=== PATIENT | female | born 1945 | race Caucasian/White ===

== ENCOUNTER 2016-11-25 17:22 | Inpatient (IN) | payer MEDICARE, MEDICAID ==
[~2016-11-25] VITALS: Ht 160 cm; Wt 54.6 kg
[~2016-11-25 17:22] MED LIST: ASPI81TA3 PO; Amlodipine Besylate PO; CALC0.2511 PO; CARB1TAB3 PO; CARV3.1260 PO; CLON-379 PO; DOCU-144 PO; HYDR-3671 PO; HYDR-906 PO; LEVO500T72 PO; LOSA50TA2 PO; NOV SC; PANT40TA4 PO; PARO-37 PO; PRAM0.25 PO; QUET50TA16 PO; SEVE800T10 PO
[2016-11-25 20:16] VITALS: TEMP 97.3
[2016-11-25] MEDS ORDERED: OMEP20CA16 PO (20:37)
[2016-11-25] MEDS ORDERED: SEVE800T10 PO (20:37)
[2016-11-25] MEDS ORDERED: CLON2TAB3 PO (20:38)
[2016-11-25] MEDS ORDERED: QUET100T32 PO (20:38)
[2016-11-25] MEDS ORDERED: [UNRECOGNIZED DRUG - OTHER] PO (20:45)
[2016-11-25] MEDS ORDERED: NORFLEX PO (20:53)
[2016-11-25] MEDS ORDERED: NORFLEX (20:53)
[2016-11-25 21:03] LABS: ADD SCAN DIFF NO
[2016-11-25 21:06] LABS: BASOPHIL # 0.1 10^3/ul (0.0-0.1); BASOPHILS % 1.4 % (0.0-2.0); EOSINOPHILS # 0.6 10^3/ul (0.0-0.5); EOSINOPHILS % 10.1 % (0.0-7.0); HEMATOCRIT 37.5 % (37.0-47.0); HEMOGLOBIN 12.7 g/dl (12.0-16.0); LYMPHOCYTES # 1.6 10^3/ul (0.8-2.9); LYMPHOCYTES % 25.4 % (15.0-51.0); MEAN CORPUSCULAR HEMOGLOBIN 34.1 pg (29.0-33.0); MEAN CORPUSCULAR HGB CONC 33.9 g/dl (32.0-37.0); MEAN CORPUSCULAR VOLUME 100.8 fl (82.0-101.0); MEAN PLATELET VOLUME 11.3 fl (7.4-10.4); MONOCYTE # 0.6 10^3/ul (0.3-0.9); MONOCYTES % 9.5 % (0.0-11.0); NEUTROPHIL # 3.3 10^3/ul (1.6-7.5); NEUTROPHILS % 53.4 % (39.0-77.0); PLATELET COUNT 177 10^3/UL (140-415); RED BLOOD COUNT 3.72 10^6/ul (4.20-5.40); WHITE BLOOD COUNT 6.2 10^3/ul (4.8-10.8)
[2016-11-25 22:29] LABS: CREATININE 4.92 mg/dl (0.44-1.00)
[2016-11-25 22:30] LABS: CALCIUM 7.9 mg/dl (8.4-10.2)
[2016-11-25 22:31] LABS: POTASSIUM 6.1 mmol/L (3.5-5.1)
[2016-11-25] MEDS ORDERED: NA BICARBONATE 8.4% 50 ML SYG IV STA (22:31)
[2016-11-25] MEDS ORDERED: INSULIN REGULAR, HUMAN 100 UNIT/1 ML 3ML VIAL IV STA (22:31)
[2016-11-25] MEDS ORDERED: NA POLYST SULFON 15 GM/60 ML BTL PO STA (22:31)
[2016-11-25] MEDS ORDERED: DEXTROSE 50% 50 ML SYRINGE IV STA (22:31)
--- NOTE | 2016-11-25 22:42 | ERA ---
ER Documentation Chief Complaint Date/Time DATE: 11/25/16 TIME: 22:40 Chief Complaint CAME TO ED BECAUSE SHE "NEEDS DIALYSIS" HPI Patient is a 70-year-old female with diabetes and dialysis who presents for dialysis. The patient came back from [place] yesterday after being there for 5 months. She is not able to get dialysis here in the [place] this time. Therefore she came to the ER to get her dialysis. She was due for dialysis today. Upon review of old medical records this is the patient's fourth visit since August 2015 and she has been admitted 3 times previously. She has no complaints currently. ROS All systems reviewed and are negative except as per history of present illness. Medications Home Meds Active Scripts Pramipexole* (Pramipexole*) 0.25 Mg Tablet, 0.25 MG PO HS for 30 Days, TAB Prov:LISA LESTER MD 05/27/16 Reported Medications [Norflex 450/35MG] No Conflict Check, 1 TAB PO Q8H Y for PAIN 11/25/16 [Fosfocil] No Conflict Check, 500 MG PO QHS 11/25/16 Quetiapine Fumarate* (Quetiapine Fumarate*) 100 Mg Tablet, 100 MG PO BID, TAB 11/25/16 Clonazepam* (Clonazepam*) 2 Mg Tablet, 2 MG PO QHS, TAB 11/25/16 Sevelamer Hcl* (Renagel*) 800 Mg Tablet, 800 MG PO WITH MEAL DAILY, TAB 11/25/16 Omeprazole* (Omeprazole*) 20 Mg Capsule.dr, 40 MG PO QAM, #30 CAP 11/25/16 Carbidopa-Levodopa (Sinemet) 25-250 Mg Tablet, 0.5 TAB PO BID, TAB 09/03/15 Discontinued Reported Medications [Norflex] No Conflict Check 11/25/16 Insulin Aspart* (Novolog Insulin Vial*) 100 U/Ml Vial, 0 SC SLIDING SCALE AC, VIAL 09/23/15 Discontinued Scripts Sevelamer Hcl* (Renagel*) 800 Mg Tab, 1600 MG PO WITH MEALS for 30 Days, TAB Prov:LISA LESTER MD 05/27/16 Pantoprazole* (Pantoprazole*) 40 Mg Tabec, 40 MG PO DAILY for 30 Days Prov:LISA LESTER MD 05/27/16 Losartan Potassium* (Cozaar*) 50 Mg Tab, 100 MG PO DAILY for 30 Days, TAB Prov:LISA LESTER MD 05/27/16 Hydralazine Hcl* (Hydralazine Hcl*) 25 Mg Tab, 25 MG PO Q8 for 30 Days, TAB Prov:ILSA LESTER MD 05/27/16 [Amlodipine Besylate] 5 MG TAB No Conflict Check, 5 MG PO BID for 30 Days, TAB Prov:LISA LESTER MD 05/27/16 Quetiapine Fumarate* (Seroquel*) 50 Mg Tablet, 50 MG PO HS for 30 Days, TAB Prov:LISA LESTER MD 05/27/16 Carvedilol* (Carvedilol*) 3.125 Mg Tablet, 3.125 MG PO BID for 30 Days, TAB Prov:LISA LESTER MD 05/27/16 Paroxetine Hcl* (Paroxetine*) 20 Mg Tablet, 20 MG PO DAILY for 30 Days, TAB Prov:LISA LESTER MD 05/27/16 Calcitriol* (Calcitriol*) 0.25 Mcg Capsule, 0.25 MCG PO DAILY for 30 Days, CAP Prov:LISA LESTER MD 05/27/16 Aspirin* (Aspirin* Chew) 81 Mg Tab.chew, 81 MG PO DAILY, #30 TAB.CHEW Prov:LISA LESTER MD 05/27/16 Docusate Sodium* (Colace*) 100 Mg Capsule, 100 MG PO BID, #60 CAP Prov:SAMRA ODELL MD 05/22/16 Hydrocodone/Acetaminophen ([place] 5-325 Tablet) 1 Each Tablet, 1 EACH PO Q6 Y for PAIN LEVEL 6-10 for 7 Days, TAB Prov:SAMRA ODELL MD 05/22/16 Levofloxacin* (Levaquin*) 500 Mg Tablet, 500 MG PO Q48H for 10 Days, TAB Prov:SAMRA ODELL MD 05/22/16 Clonidine Hcl* (Clonidine Hcl*) 0.1 Mg Tab, 0.1 MG PO Q4H Y for sbp>160, #30 TAB Prov:ANGEL RAMIREZ 09/29/15 Allergies Allergies: Coded Allergies: No Known Allergy (Unverified , 11/25/16) PMhx/Soc History of Surgery: Yes (RT ANKLE SX, CHOLECYSTECTOMY, LT AV FISUTLA PLACEMENT) Anesthesia Reaction: No Hx Neurological Disorder: No Hx Respiratory Disorders: Yes (COPD) Hx Cardiac Disorders: Yes (HTN) Hx Psychiatric Problems: No Hx Miscellaneous Medical Probl: Yes (HTN, ESRD-DIALYSIS, DM, COPD, GERD) Hx Alcohol Use: No Hx Substance Use: No Hx Tobacco Use: Yes Smoking Status: Former smoker FmHx Family History: diabetes Physical Exam Vitals Vital Signs Date Time Temp Pulse Resp B/P Pulse Ox O2 Delivery O2 Flow Rate FiO2 11/25/16 20:16 97.3 52 18 151/67 97 Room Air 11/25/16 17:39 97.5 50 20 129/66 100 Physical Exam Const: No acute distress Head: Atraumatic Eyes: Normal Conjunctiva ENT: Normal External Ears, Nose and Mouth. Neck: Full range of motion..~ No meningismus. Resp: Clear to auscultation bilaterally Cardio: Regular rate and rhythm, no murmurs Abd: Soft, non tender, non distended. Normal bowel sounds Skin: No petechiae or rashes Back: No midline or flank tenderness Ext: No cyanosis, or edema Neur: Awake and alert Psych: Normal Mood and Affect Result Diagram: 11/25/16204911/25/162158 Results 24 hrs Laboratory Tests Test 11/25/16 20:50 11/25/16 21:59 Basophils # 0.110^3/ul Basophils % 1.4% Eosinophils # 0.610^3/ul Eosinophils % 10.1% Hematocrit 37.5% Hemoglobin 12.7g/dl Lymphocytes # 1.610^3/ul Lymphocytes % 25.4% Mean Corpuscular Hemoglobin 34.1pg Mean Corpuscular Hemoglobin Concent 33.9g/dl Mean Corpuscular Volume 100.8fl Mean Platelet Volume 11.3fl Monocytes # 0.610^3/ul Monocytes % 9.5% Neutrophils # 3.310^3/ul Neutrophils % 53.4% Nucleated Red Blood Cells # 0.010^3/ul Nucleated Red Blood Cells % 0.0/100WBC Platelet Count 42781^3/UL Red Blood Count 3.7210^6/ul Red Cell Distribution Width 14.0% White Blood Count 6.210^3/ul Anion Gap 24 Blood Urea Nitrogen 85mg/dl Calcium Level 7.9mg/dl Carbon Dioxide Level 20mmol/L Chloride Level 91mmol/L Creatinine 4.92mg/dl Glucose Level 143mg/dl Potassium Level 6.1mmol/L Sodium Level 129mmol/L Current Medications Medications (Trade) Dose Ordered Sig/Harmeet Route PRN Reason Start Time Stop Time Status Last Admin Dose Admin Insulin Human Regular (Humulin R) 10 unit ONCE STAT IV 11/25/16 22:31 11/25/16 22:32 DC Dextrose (D50w Syringe) 50 ml ONCE STAT IV 11/25/16 22:31 11/25/16 22:32 DC Sodium Polystyrene Sulfonate (Kayexalate) 30 gm ONCE STAT PO 11/25/16 22:31 11/25/16 22:32 DC Sodium Bicarbonate (Na Bicarb 8.4% Syg) 50 ml ONCE STAT IV 11/25/16 22:31 11/25/16 22:32 DC Ondansetron HCl (Zofran Inj) 4 mg ER BRIDGE PRN IV NAUSEA AND/OR VOMITING 11/25/16 23:00 11/26/16 22:59 Acetaminophen (Tylenol Tab) 650 mg ER BRIDGE PRN PO MILD PAIN/FEVER 11/25/16 23:00 11/26/16 22:59 Procedures/MDM EKG read by me: Rate/Rhythm: Regular rate and rhythm at a normal rate Intervals: Normal Impression: No evidence of ischemia or arrhythmia Patient is a 70-year-old female who presents with renal failure and hyperkalemia. She was given insulin, glucose, bicarbonate, and Kayexalate. She will need dialysis. I spoke with Dr. Lester from the panel team for admission to a telemetry bed. Without admission, treatment for potassium, and dialysis the patient is a high risk of ventricular arrhythmias. Critical Care: Time: 35 minutes excluding all billable procedures. Treatments/Evaluations: Close monitoring and treatment of unstable vital signs, cardiorespiratory, and neurologic status, while maintaining tight balance of fluid, respiratory, and cardiac interventions. Departure Diagnosis: Primary Impression: Hyperkalemia Condition: CAROL Dunbar MD Nov 25, 2016 22:42
[2016-11-25] MEDS ORDERED: ONDANSETRON 4 MG INJ IV PRN (23:00)
[2016-11-25] MEDS ORDERED: ACETAMINOPHEN 325 MG TAB PO PRN (23:00)
[2016-11-26] VITALS (20 sets, daily range): BP systolic 112–197; BP diastolic 52–86; PULSE 40–87; RESP 16–20; Ht 160 cm; Wt 54.6 kg
[2016-11-26] MEDS ORDERED: ONDANSETRON 4 MG INJ IV PRN (01:00)
[2016-11-26] MEDS: ACCUCHECK XX SCH (01:09)
[2016-11-26] MEDS ORDERED: GLUCOSE GEL 15 GRAM TUBE PO PRN ×2 (01:30)
[2016-11-26] MEDS ORDERED: GLUCAGON 1 MG INJ IM PRN (01:30)
[2016-11-26] MEDS ORDERED: DEXTROSE 50% 50 ML SYRINGE IV PRN ×2 (01:30)
[2016-11-26] MEDS: clonAZEPAM 0.5 MG TAB PO SCH ×2 (01:41→20:27)
[2016-11-26] MEDS: CARBIDOPA/LEVODOPA (25/250) TAB PO SCH ×3 (01:41→20:13)
[2016-11-26] MEDS: QUETIAPINE 100 MG TAB PO SCH ×3 (01:41→20:14)
[2016-11-26 06:13] LABS: ADD SCAN DIFF NO
[2016-11-26 06:28] LABS: BASOPHIL # 0.1 10^3/ul (0.0-0.1); EOSINOPHILS # 0.3 10^3/ul (0.0-0.5); EOSINOPHILS % 3.9 % (0.0-7.0); HEMATOCRIT 36.1 % (37.0-47.0); HEMOGLOBIN 11.8 g/dl (12.0-16.0); LYMPHOCYTES % 13.4 % (15.0-51.0); MEAN CORPUSCULAR HGB CONC 32.7 g/dl (32.0-37.0); MEAN CORPUSCULAR VOLUME 100.8 fl (82.0-101.0); MEAN PLATELET VOLUME 9.8 fl (7.4-10.4); MONOCYTE # 0.6 10^3/ul (0.3-0.9); MONOCYTES % 8.3 % (0.0-11.0); NEUTROPHIL # 5.2 10^3/ul (1.6-7.5); NEUTROPHILS % 73.1 % (39.0-77.0); PLATELET COUNT 146 10^3/UL (140-415); RED BLOOD COUNT 3.58 10^6/ul (4.20-5.40); RED CELL DISTRIBUTION WIDTH 13.8 % (11.5-14.5); WHITE BLOOD COUNT 7.1 10^3/ul (4.8-10.8)
[2016-11-26 06:35] LABS: ALBUMIN 3.6 g/dl (3.3-4.9)
[2016-11-26 06:36] LABS: POTASSIUM 5.6 mmol/L (3.5-5.1)
[2016-11-26 06:38] LABS: ALBUMIN/GLOBULIN RATIO 0.94; CREATININE 4.98 mg/dl (0.44-1.00); TOTAL PROTEIN 7.4 g/dl (6.1-8.1)
[2016-11-26 06:39] LABS: CALCIUM 7.2 mg/dl (8.4-10.2); MAGNESIUM 2.3 mg/dl (1.7-2.5)
[2016-11-26] MEDS: INSULIN ASPART [NOVOLOG] 3 ML PEN SC SCH ×4 (07:55→20:13)
[2016-11-26] MEDS ORDERED: INSULIN GLARGINE [LANtus] 3 ML PEN SC SCH (08:00)
[2016-11-26] MEDS: SEVELAMER 800 MG TAB PO SCH ×3 (08:14→18:09)
[2016-11-26] MEDS: SODIUM CHLORIDE 1 GM TAB PO SCH ×3 (08:14→20:12)
[2016-11-26] MEDS: FAMOTIDINE 20 MG TAB PO SCH (08:15)
[2016-11-26] MEDS: HEPARIN 5,000 UNIT/0.5 ML SYG SC SCH ×2 (08:25→20:33)
--- NOTE | 2016-11-26 11:13 | HP ---
Date/Time of Note Date/Time of Note DATE: 11/26/16 TIME: 11:00 Assessment/Plan Lines/Catheters IV C[facility]ter Type (from [facility]): Saline Lock Urinary Cath still in place: No Assessment/Plan Assessment/Plan IMPRESSION 1. ESRD on HD 2. Hyperkalemia 3. Mild Metabolic Acidosis 4. Probable Parkinson's disease. 5. Depression. 6. Diabetes mellitus. 7. Chronic obstructive pulmonary disease. 8. Secondary Hemochromatosis (per previous MRI) 9. Hypertension 10 Anemia of Chronic Disease PLAN - pt is s/p kayexalate and insulin in ER. Will f/u repeat labs - Will place a Nephrology consult - Cont home meds with adjustment as needed HPI/ROS Admit Date/Time Admit Date/Time Nov 25, 2016 at 22:35 Hx of Present Illness This is a 70 yo female with hx of End-stage renal disease on hemodialysis, Hypertension, DM, COPD, Rest Leg syndrome, probable Parkinso/s Disease, Depression, GERD and secondary Hemochromatosis(per MRI 2015), and anemia of chronic kidney disease who presented to [facility] after missing dialysis. She just returned from [place] after 5 months vacation. She was last admitted her in April of 2016 after missing dialysis because of vacation. Labs in ER showed k+ 6.1, BUN 85, Cr 4.9, HCO3 20 and Na 129. She was given kayexalate, bicarb and insulin while in ER. PMH/Family/Social Past Surgical History Past Surgical Hx: cholecystectomy Social History Smoking Status: Former smoker Exam/Review of Systems Vital Signs Vitals Vital Signs Date Time Temp Pulse Resp B/P Pulse Ox O2 Delivery O2 Flow Rate FiO2 11/26/16 08:08 49 11/26/16 07:38 97.4 20 140/67 98 11/26/16 04:02 Room Air Labs Result Diagram: 11/26/16 0540 11/26/16 0540 Medications Medications Current Medications Carbidopa/Levodopa (Sinemet (25/ 250)) 0.5 tab BID PO Last administered on 08:16; Admin Dose 0.5 TAB; Start 11/26/16 at 01:33 Clonazepam (Klonopin) 2 mg QHS PO Last administered on 11/26/16 01:41; Admin Dose 2 MG; Start 11/26/16 at 01:33 Pramipexole (Mirapex) 0.25 mg HS PO ; Start 11/26/16 at 21:00 Quetiapine Fumarate (Seroquel) 100 mg BID PO Last administered on 11/26/16 08: 15; Admin Dose 100 MG; Start 11/26/16 at 01:33 Famotidine (Pepcid) 20 mg DAILY PO Last administered on 11/26/16 08:15; Admin Dose 20 MG; Start 11/26/16 at 09:00 Heparin Sodium (Porcine) (Heparin (5000 Units/0.5 ml)) 5,000 unit BID SC Last administered on 11/26/16 08:25; Admin Dose 5,000 UNIT; Start 11/26/16 at 09:00 Ondansetron HCl (Zofran Inj) 4 mg Q4H PRN IV NAUSEA AND/OR VOMITING; Start 11/26 at 01:00 Acetaminophen (Tylenol Tab) 650 mg Q6H PRN PO PAIN AND OR ELEVATED TEMP; Start 11/26/16 at 01:00 Hydralazine HCl (Apresoline) 10 mg BID PO Last administered on 11/26/16 08:15; Admin Dose 10 MG; Start 11/26/16 at 01:33 Hydralazine HCl (Apresoline) 10 mg Q4H PRN IV ELEVATED BLOOD PRESSURE; Start at 01:00 Insulin Glargine (Lantus) 10 unit DAILY@08 SC Last administered on 11/26/16 08: 25; Admin Dose 10 UNIT; Start 11/26/16 at 08:00 Diagnostic Test (Pha) (Accucheck) 1 ea 02 XX ; Start 11/26/16 at 02:00 Miscellaneous Information 1 ea NOTE XX ; Start 11/26/16 at 01:30 Glucose (Glutose) 15 gm Q15M PRN PO DECREASED GLUCOSE; Start 11/26/16 at 01:30 Glucose (Glutose) 22.5 gm Q15M PRN PO DECREASED GLUCOSE; Start 11/26/16 at 01:30 Dextrose (D50w Syringe) 25 ml Q15M PRN IV DECREASED GLUCOSE; Start 11/26/16 at 01:30 Dextrose (D50w Syringe) 50 ml Q15M PRN IV DECREASED GLUCOSE; Start 11/26/16 at 01:30 Glucagon (Glucagen) 1 mg Q15M PRN IM DECREASED GLUCOSE; Start 11/26/16 at 01:30 Glucose (Glutose) 15 gm Q15M PRN BUCCAL DECREASED GLUCOSE; Start 11/26/16 at 01: 30 Sodium Chloride (Nacl) 1 gm TID PO Last administered on 11/26/16 08:14; Admin Dose 1 GM; Start 11/26/16 at 09:00; Stop 11/27/16 at 09:00 LISA LESTER MD Nov 26, 2016 11:13
[2016-11-26 13:12] LABS: HAAIG REFLEX REFLEX FILED
--- NOTE | 2016-11-26 13:24 | CONS ---
DATE OF ADMISSION: 11/25/2016 DATE OF CONSULTATION: 11/26/2016 HISTORY OF PRESENT ILLNESS: The patient is a 70-year-old woman with history of end-stage renal disease, has been on hemodialysis for approximately 4 years. The patient has been in [place] for the past approximately 3 months. Prior to that, she was dialyzed in [place]. She returned from [place] 2 days ago. Apparently she tried to return to the hemodialysis center, but they referred her to the emergency room. In the emergency room, the patient was found to be mildly hyperkalemic with a potassium of 6.1. She was treated with Kayexalate and admitted. The patient states that her last dialysis was 3 days ago. Otherwise, the patient complains of some mild intermittent right-sided abdominal pain. She has had some occasional vomiting, but none recently. There has been no fever or chills. She denies any shortness of breath or chest pain. PAST MEDICAL HISTORY: 1. End-stage renal disease. 2. Hypertension. 3. Possible Parkinson's disease. 4. Diabetes mellitus. 5. Chronic obstructive pulmonary disease. 6. Anemia due to chronic kidney disease. PAST SURGICAL HISTORY: 1. Left upper arm AV fistula creation. 2. Cholecystectomy. SOCIAL HISTORY: The patient smokes 2 to 3 cigarettes per day. She does not use alcohol. FAMILY HISTORY: Both parents are . She has 2 sons with diabetes. REVIEW OF SYSTEMS: A 12-system review of systems was negative other than what is mentioned in the HPI. Medications Current Medications Carbidopa/Levodopa (Sinemet (25/ 250)) 0.5 tab BID PO Last administered on 08:16; Admin Dose 0.5 TAB; Start 11/26/16 at 01:33 Clonazepam (Klonopin) 2 mg QHS PO Last administered on 11/26/16 01:41; Admin Dose 2 MG; Start 11/26/16 at 01:33 Pramipexole (Mirapex) 0.25 mg HS PO ; Start 11/26/16 at 21:00 Quetiapine Fumarate (Seroquel) 100 mg BID PO Last administered on 11/26/16 08: 15; Admin Dose 100 MG; Start 11/26/16 at 01:33 Famotidine (Pepcid) 20 mg DAILY PO Last administered on 11/26/16 08:15; Admin Dose 20 MG; Start 11/26/16 at 09:00 Heparin Sodium (Porcine) (Heparin (5000 Units/0.5 ml)) 5,000 unit BID SC Last administered on 11/26/16 08:25; Admin Dose 5,000 UNIT; Start 11/26/16 at 09:00 Ondansetron HCl (Zofran Inj) 4 mg Q4H PRN IV NAUSEA AND/OR VOMITING; Start 11/26 at 01:00 Acetaminophen (Tylenol Tab) 650 mg Q6H PRN PO PAIN AND OR ELEVATED TEMP; Start 11/26/16 at 01:00 Hydralazine HCl (Apresoline) 10 mg BID PO Last administered on 11/26/16 08:15; Admin Dose 10 MG; Start 11/26/16 at 01:33 Hydralazine HCl (Apresoline) 10 mg Q4H PRN IV ELEVATED BLOOD PRESSURE; Start at 01:00 Insulin Glargine (Lantus) 10 unit DAILY@08 SC Last administered on 11/26/16 08: 25; Admin Dose 10 UNIT; Start 11/26/16 at 08:00 Diagnostic Test (Pha) (Accucheck) 1 ea 02 XX ; Start 11/26/16 at 02:00 Miscellaneous Information 1 ea NOTE XX ; Start 11/26/16 at 01:30 Glucose (Glutose) 15 gm Q15M PRN PO DECREASED GLUCOSE; Start 11/26/16 at 01:30 Glucose (Glutose) 22.5 gm Q15M PRN PO DECREASED GLUCOSE; Start 11/26/16 at 01:30 Dextrose (D50w Syringe) 25 ml Q15M PRN IV DECREASED GLUCOSE; Start 11/26/16 at 01:30 Dextrose (D50w Syringe) 50 ml Q15M PRN IV DECREASED GLUCOSE; Start 11/26/16 at 01:30 Glucagon (Glucagen) 1 mg Q15M PRN IM DECREASED GLUCOSE; Start 11/26/16 at 01:30 Glucose (Glutose) 15 gm Q15M PRN BUCCAL DECREASED GLUCOSE; Start 11/26/16 at 01: 30 Sodium Chloride (Nacl) 1 gm TID P PHYSICAL EXAMINATION: VITAL SIGNS: Blood pressure is 139/65, heart rate is 53, temperature is 98.0. GENERAL APPEARANCE: Patient appears to be an elderly female in no acute distress. SKIN: Dry. There is no rash. HEENT: Mouth revealed normal moist mucosa. NECK: Supple. Jugular veins were distended in the supine position. CHEST: Lungs clear to auscultation. HEART: Regular rhythm. Normal 1, normal S2. There was no murmur, gallop or rub. ABDOMEN: Soft and nontender. EXTREMITIES: There is no peripheral edema. There is aneurysmal AV fistula in the left upper arm with a good bruit. LABORATORY DATA: Sodium is 133, potassium is 5.6, chloride is 93, CO2 is 22, BUN is 88, creatinine is 4.98. Random blood sugar 78, phosphorus 6.0, calcium is 7.2, hemoglobin is 11.8, hematocrit is 36.1. White blood cell count of 7100 , platelet count is 146,000. IMPRESSION: 1. End-stage renal disease on intermittent hemodialysis. Last dialysis was 3 days ago. 2. Hyperkalemia, mild. 3. Hypertension, controlled. 4. Diabetes mellitus, controlled. PLAN: 1. Hemodialysis will be done today. 2. Monitor labs. 3. Arrangements for outpatient hemodialysis will be made. Dictated By: STERLING CERDA/MAEGAN Conf#: [id number] DID#: [id number] MTDD
[2016-11-26 14:11] LABS: HEPATITIS B CORE ANTIBODY NEGATIVE (NEGATIVE)
[2016-11-26] MEDS: hydrALAzine 20 MG INJ IV PRN (20:15)
[2016-11-26] MEDS: PRAMIPEXOLE 0.25 MG TAB PO SCH (21:00)
[2016-11-27] VITALS (12 sets, daily range): BP systolic 122–169; BP diastolic 56–79; PULSE 61–71; RESP 16–18
[2016-11-27] MEDS: ACCUCHECK XX SCH (02:00)
[2016-11-27] MEDS: ACETAMINOPHEN 325 MG TAB PO PRN (03:11)
[2016-11-27 06:02] LABS: ADD SCAN DIFF NO
[2016-11-27 06:21] LABS: BASOPHIL # 0.1 10^3/ul (0.0-0.1); BASOPHILS % 1.3 % (0.0-2.0); EOSINOPHILS # 0.6 10^3/ul (0.0-0.5); EOSINOPHILS % 11.4 % (0.0-7.0); HEMOGLOBIN 12.8 g/dl (12.0-16.0); LYMPHOCYTES # 1.8 10^3/ul (0.8-2.9); LYMPHOCYTES % 32.2 % (15.0-51.0); MEAN CORPUSCULAR HGB CONC 32.8 g/dl (32.0-37.0); MEAN CORPUSCULAR VOLUME 100.5 fl (82.0-101.0); MONOCYTE # 0.6 10^3/ul (0.3-0.9); MONOCYTES % 10.9 % (0.0-11.0); NEUTROPHIL # 2.4 10^3/ul (1.6-7.5); PLATELET COUNT 138 10^3/UL (140-415); RED BLOOD COUNT 3.88 10^6/ul (4.20-5.40); RED CELL DISTRIBUTION WIDTH 14.1 % (11.5-14.5); WHITE BLOOD COUNT 5.4 10^3/ul (4.8-10.8)
[2016-11-27 06:50] LABS: ALBUMIN 3.4 g/dl (3.3-4.9)
[2016-11-27 06:51] LABS: POTASSIUM 4.6 mmol/L (3.5-5.1)
[2016-11-27 06:53] LABS: ALBUMIN/GLOBULIN RATIO 0.94; BILIRUBIN,INDIRECT 0.1 mg/dl (0-1.1); BILIRUBIN,TOTAL 0.1 mg/dl (0.2-1.3); CREATININE 4.03 mg/dl (0.44-1.00)
[2016-11-27 06:54] LABS: CALCIUM 8.1 mg/dl (8.4-10.2)
[2016-11-27] MEDS: GLUCOSE GEL 15 GRAM TUBE BUCCAL PRN ×2 (07:02→16:58)
[2016-11-27] MEDS: INSULIN ASPART [NOVOLOG] 3 ML PEN SC SCH ×4 (07:55→22:33)
[2016-11-27] MEDS: QUETIAPINE 100 MG TAB PO SCH ×2 (08:51→20:54)
[2016-11-27] MEDS: SEVELAMER 800 MG TAB PO SCH ×3 (08:51→16:48)
[2016-11-27] MEDS: FAMOTIDINE 20 MG TAB PO SCH (08:51)
[2016-11-27] MEDS: SODIUM CHLORIDE 1 GM TAB PO SCH (08:52)
[2016-11-27] MEDS: CARBIDOPA/LEVODOPA (25/250) TAB PO SCH ×2 (08:52→20:53)
[2016-11-27] MEDS: HEPARIN 5,000 UNIT/0.5 ML SYG SC SCH ×2 (08:55→20:56)
--- NOTE | 2016-11-27 12:46 | CONS ---
Date/Time of Note Date/Time of Note DATE: 11/27/16 TIME: 12:44 Assessment/Plan Assessment/Plan Additional Assessment/Plan 1. End-stage renal disease on intermittent hemodialysis. Tolerated dialysis yesterday. Plan for HD again tomorrow am. She can then be discharged when outpatient dialysis is arranged. 2. Hyperkalemia, resolved 3. Hypertension, controlled. 4. Diabetes mellitus, controlled. BS was low this am. Consultation Date/Type/Reason Admit Date/Time Nov 25, 2016 at 22:35 Initial Consult Date Type of Consultation: Nephrology 24 HR Interval Summary Free Text/Dictation Alert, up in chair, no complaints. Exam/Review of Systems Vital Signs Vitals Vital Signs Date Time Temp Pulse Resp B/P Pulse Ox O2 Delivery O2 Flow Rate FiO2 11/27/16 12:22 61 11/27/16 11:55 97.4 18 138/65 95 11/26/16 04:02 Room Air Intake and Output 11/26/16 11/26/16 11/27/16 15:00 23:00 07:00 Intake Total 1400 ml 300 ml Output Total 1800 ml 0 ml Balance -400 ml 300 ml Exam Constitutional: alert Psych: no complaints Neck: No jvd Respiratory: clear to auscultation Cardiovascular: regular rate and rhythm Gastrointestinal: non-tender, soft Extremities: No edema Results Result Diagram: 11/27/16 0539 11/27/16 0539 Results 24 hrs Laboratory Tests Test 11/26/16 18:04 11/26/16 20:11 11/27/16 05:39 11/27/16 06:58 Bedside Glucose 91 116 48 *L Alanine Aminotransferase (ALT/SGPT) 14 Albumin 3.4 Albumin/Globulin Ratio 0.94 Alkaline Phosphatase 276 H Anion Gap 20 H Aspartate Amino Transf (AST/SGOT) 37 Basophils # 0.1 Basophils % 1.3 Blood Urea Nitrogen 65 H Calcium Level 8.1 L Carbon Dioxide Level 26 Chloride Level 96 L Creatinine 4.03 H Direct Bilirubin 0.00 Eosinophils # 0.6 H Eosinophils % 11.4 H Globulin 3.60 H Glucose Level 47 #*L Hematocrit 39.0 Hemoglobin 12.8 Indirect Bilirubin 0.1 Lymphocytes # 1.8 Lymphocytes % 32.2 Mean Corpuscular Hemoglobin 33.0 Mean Corpuscular Hemoglobin Concent 32.8 Mean Corpuscular Volume 100.5 Mean Platelet Volume 10.0 Monocytes # 0.6 Monocytes % 10.9 Neutrophils # 2.4 Neutrophils % 44.0 Nucleated Red Blood Cells # 0.0 Nucleated Red Blood Cells % 0.0 Platelet Count 138 L Potassium Level 4.6 Red Blood Count 3.88 L Red Cell Distribution Width 14.1 Sodium Level 137 Total Bilirubin 0.1 L Total Protein 7.0 White Blood Count 5.4 # Test 11/27/16 07:11 11/27/16 08:04 11/27/16 11:53 11/27/16 12:28 Bedside Glucose 72 109 89 107 Medications Medications Current Medications Carbidopa/Levodopa (Sinemet (25/ 250)) 0.5 tab BID PO Last administered on 08:52; Admin Dose 0.5 TAB; Start 11/26/16 at 01:33 Clonazepam (Klonopin) 2 mg QHS PO Last administered on 11/26/16 20:27; Admin Dose 2 MG; Start 11/26/16 at 01:33 Pramipexole (Mirapex) 0.25 mg HS PO ; Start 11/26/16 at 21:00 Quetiapine Fumarate (Seroquel) 100 mg BID PO Last administered on 11/27/16 08: 51; Admin Dose 100 MG; Start 11/26/16 at 01:33 Famotidine (Pepcid) 20 mg DAILY PO Last administered on 11/27/16 08:51; Admin Dose 20 MG; Start 11/26/16 at 09:00 Heparin Sodium (Porcine) (Heparin (5000 Units/0.5 ml)) 5,000 unit BID SC Last administered on 11/27/16 08:55; Admin Dose 5,000 UNIT; Start 11/26/16 at 09:00 Ondansetron HCl (Zofran Inj) 4 mg Q4H PRN IV NAUSEA AND/OR VOMITING; Start 11/26 at 01:00 Acetaminophen (Tylenol Tab) 650 mg Q6H PRN PO PAIN AND OR ELEVATED TEMP Last administered on 11/27/16 03:11; Admin Dose 650 MG; Start 11/26/16 at 01:00 Hydralazine HCl (Apresoline) 10 mg BID PO Last administered on 11/27/16 08:52; Admin Dose 10 MG; Start 11/26/16 at 01:33 Hydralazine HCl (Apresoline) 10 mg Q4H PRN IV ELEVATED BLOOD PRESSURE Last administered on 11/26/16 20:15; Admin Dose 10 MG; Start 11/26/16 at 01:00 Diagnostic Test (Pha) (Accucheck) 1 ea 02 XX ; Start 11/26/16 at 02:00 Miscellaneous Information 1 ea NOTE XX ; Start 11/26/16 at 01:30 Glucose (Glutose) 15 gm Q15M PRN PO DECREASED GLUCOSE; Start 11/26/16 at 01:30 Glucose (Glutose) 22.5 gm Q15M PRN PO DECREASED GLUCOSE; Start 11/26/16 at 01:30 Dextrose (D50w Syringe) 25 ml Q15M PRN IV DECREASED GLUCOSE; Start 11/26/16 at 01:30 Dextrose (D50w Syringe) 50 ml Q15M PRN IV DECREASED GLUCOSE; Start 11/26/16 at 01:30 Glucagon (Glucagen) 1 mg Q15M PRN IM DECREASED GLUCOSE; Start 11/26/16 at 01:30 Glucose (Glutose) 15 gm Q15M PRN BUCCAL DECREASED GLUCOSE Last administered on 11/27/16 07:02; Admin Dose 15 GM; Start 11/26/16 at 01:30 STERLING MENDEZ MD Nov 27, 2016 12:46
--- NOTE | 2016-11-27 13:12 | PN ---
Date/Time of Note Date/Time of Note DATE: 11/27/16 TIME: 13:07 Assessment/Plan VTE Prophylaxis VTE Prophylaxis Intervention: heparin Lines/Catheters IV C[facility]ter Type (from [facility]): Saline Lock Urinary Cath still in place: No Assessment/Plan Chief Complaint/Hosp Course 1. ESRD on HD -Renal consult appreciated, cont HD -will need out-pt HD 2. Hyperkalemia 2/2 ESRD-resolved 3. Parkinson's -cont Rx 4. Diabetes mellitus -A1C at 6.2 -DC Lantus 2/2 Hypoglycemia 5. Chronic obstructive pulmonary disease-stable PPx- Heparin Problems: Subjective 24 Hr Interval Summary Constitutional: no complaints Exam/Review of Systems Vital Signs Vitals Vital Signs Date Time Temp Pulse Resp B/P Pulse Ox O2 Delivery O2 Flow Rate FiO2 11/27/16 12:22 61 11/27/16 11:55 97.4 18 138/65 95 11/26/16 04:02 Room Air Intake and Output 11/26/16 11/26/16 11/27/16 15:00 23:00 07:00 Intake Total 1400 ml 300 ml Output Total 1800 ml 0 ml Balance -400 ml 300 ml Exam Constitutional: alert Respiratory: clear to auscultation Cardiovascular: regular rate and rhythm Gastrointestinal: soft, No distended Musculoskeletal: nl extremities to inspection Results Result Diagram: 11/27/16 0539 11/27/16 0539 Results 24 hrs Laboratory Tests Test 11/26/16 18:04 11/26/16 20:11 11/27/16 05:39 11/27/16 06:58 Bedside Glucose 91 116 48 *L Alanine Aminotransferase (ALT/SGPT) 14 Albumin 3.4 Albumin/Globulin Ratio 0.94 Alkaline Phosphatase 276 H Anion Gap 20 H Aspartate Amino Transf (AST/SGOT) 37 Basophils # 0.1 Basophils % 1.3 Blood Urea Nitrogen 65 H Calcium Level 8.1 L Carbon Dioxide Level 26 Chloride Level 96 L Creatinine 4.03 H Direct Bilirubin 0.00 Eosinophils # 0.6 H Eosinophils % 11.4 H Globulin 3.60 H Glucose Level 47 #*L Hematocrit 39.0 Hemoglobin 12.8 Indirect Bilirubin 0.1 Lymphocytes # 1.8 Lymphocytes % 32.2 Mean Corpuscular Hemoglobin 33.0 Mean Corpuscular Hemoglobin Concent 32.8 Mean Corpuscular Volume 100.5 Mean Platelet Volume 10.0 Monocytes # 0.6 Monocytes % 10.9 Neutrophils # 2.4 Neutrophils % 44.0 Nucleated Red Blood Cells # 0.0 Nucleated Red Blood Cells % 0.0 Platelet Count 138 L Potassium Level 4.6 Red Blood Count 3.88 L Red Cell Distribution Width 14.1 Sodium Level 137 Total Bilirubin 0.1 L Total Protein 7.0 White Blood Count 5.4 # Test 11/27/16 07:11 11/27/16 08:04 11/27/16 11:53 11/27/16 12:28 Bedside Glucose 72 109 89 107 Medications Medications Current Medications Carbidopa/Levodopa (Sinemet (25/ 250)) 0.5 tab BID PO Last administered on 08:52; Admin Dose 0.5 TAB; Start 11/26/16 at 01:33 Clonazepam (Klonopin) 2 mg QHS PO Last administered on 11/26/16 20:27; Admin Dose 2 MG; Start 11/26/16 at 01:33 Pramipexole (Mirapex) 0.25 mg HS PO ; Start 11/26/16 at 21:00 Quetiapine Fumarate (Seroquel) 100 mg BID PO Last administered on 11/27/16 08: 51; Admin Dose 100 MG; Start 11/26/16 at 01:33 Famotidine (Pepcid) 20 mg DAILY PO Last administered on 11/27/16 08:51; Admin Dose 20 MG; Start 11/26/16 at 09:00 Heparin Sodium (Porcine) (Heparin (5000 Units/0.5 ml)) 5,000 unit BID SC Last administered on 11/27/16 08:55; Admin Dose 5,000 UNIT; Start 11/26/16 at 09:00 Ondansetron HCl (Zofran Inj) 4 mg Q4H PRN IV NAUSEA AND/OR VOMITING; Start 11/26 at 01:00 Acetaminophen (Tylenol Tab) 650 mg Q6H PRN PO PAIN AND OR ELEVATED TEMP Last administered on 11/27/16 03:11; Admin Dose 650 MG; Start 11/26/16 at 01:00 Hydralazine HCl (Apresoline) 10 mg BID PO Last administered on 11/27/16 08:52; Admin Dose 10 MG; Start 11/26/16 at 01:33 Hydralazine HCl (Apresoline) 10 mg Q4H PRN IV ELEVATED BLOOD PRESSURE Last administered on 11/26/16 20:15; Admin Dose 10 MG; Start 11/26/16 at 01:00 Diagnostic Test (Pha) (Accucheck) 1 ea 02 XX ; Start 11/26/16 at 02:00 Miscellaneous Information 1 ea NOTE XX ; Start 11/26/16 at 01:30 Glucose (Glutose) 15 gm Q15M PRN PO DECREASED GLUCOSE; Start 11/26/16 at 01:30 Glucose (Glutose) 22.5 gm Q15M PRN PO DECREASED GLUCOSE; Start 11/26/16 at 01:30 Dextrose (D50w Syringe) 25 ml Q15M PRN IV DECREASED GLUCOSE; Start 11/26/16 at 01:30 Dextrose (D50w Syringe) 50 ml Q15M PRN IV DECREASED GLUCOSE; Start 11/26/16 at 01:30 Glucagon (Glucagen) 1 mg Q15M PRN IM DECREASED GLUCOSE; Start 11/26/16 at 01:30 Glucose (Glutose) 15 gm Q15M PRN BUCCAL DECREASED GLUCOSE Last administered on 11/27/16 07:02; Admin Dose 15 GM; Start 11/26/16 at 01:30 DARREN VERGARA Nov 27, 2016 13:12
[2016-11-27] MEDS: hydrALAzine 20 MG INJ IV PRN (16:48)
[2016-11-27] MEDS: clonAZEPAM 0.5 MG TAB PO SCH (20:54)
[2016-11-27] MEDS: PRAMIPEXOLE 0.25 MG TAB PO SCH (20:55)
[2016-11-28] VITALS (17 sets, daily range): BP systolic 121–162; BP diastolic 54–74; PULSE 59–76; RESP 16–18
[2016-11-28] MEDS: ACCUCHECK XX SCH (02:25)
[2016-11-28] MEDS ORDERED: HYDROCODONE/APAP (5/325) TAB PO PRN (02:30)
[2016-11-28 07:29] LABS: POTASSIUM 4.7 mmol/L (3.5-5.1)
[2016-11-28 07:32] LABS: CREATININE 4.64 mg/dl (0.44-1.00)
[2016-11-28 07:33] LABS: CALCIUM 8.7 mg/dl (8.4-10.2)
[2016-11-28] MEDS: INSULIN ASPART [NOVOLOG] 3 ML PEN SC SCH ×4 (07:55→21:00)
[2016-11-28] MEDS: SEVELAMER 800 MG TAB PO SCH ×3 (08:55→17:49)
[2016-11-28] MEDS: QUETIAPINE 100 MG TAB PO SCH ×2 (08:56→21:34)
[2016-11-28] MEDS: FAMOTIDINE 20 MG TAB PO SCH (08:56)
[2016-11-28] MEDS: CARBIDOPA/LEVODOPA (25/250) TAB PO SCH ×2 (08:56→21:33)
[2016-11-28] MEDS: HEPARIN 5,000 UNIT/0.5 ML SYG SC SCH ×2 (09:04→21:36)
--- NOTE | 2016-11-28 09:49 | CONS ---
Date/Time of Note Date/Time of Note DATE: 11/28/16 TIME: 09:44 Assessment/Plan Assessment/Plan Chief Complaint/Hosp Course 1. End-stage renal disease on maintenance hemodialysis. The patient was visiting in [place] for 3 months. She was admitted here because her outpatient dialysis unit in [place] did not accept her back and recommended she come to the hospital. She is going to have hemodialysis this morning. She had a dialysis treatment yesterday. The patient will need to have outpatient hemodialysis arranged. The home health care case manager was informed to try and get her into one of the nearby dialysis units. 2. Hypertension 3. Type 2 diabetes mellitus Problems: Consultation Date/Type/Reason Admit Date/Time Nov 25, 2016 at 22:35 Initial Consult Date Type of Consultation: Nephrology 24 HR Interval Summary Free Text/Dictation The patient is awake and alert. Her daughter is in the room with her and is able to translate for me as the patient is [place]ese-speaking only. The patient was in [place] for 3 months and just returned several days ago. She was admitted for hemodialysis treatment as she could not get into her outpatient dialysis unit. Constitutional: no complaints Exam/Review of Systems Vital Signs Vitals Vital Signs Date Time Temp Pulse Resp B/P Pulse Ox O2 Delivery O2 Flow Rate FiO2 11/28/16 08:42 71 11/28/16 08:17 97.8 16 162/74 99 11/26/16 04:02 Room Air Intake and Output 11/27/16 11/27/16 11/28/16 15:00 23:00 07:00 Intake Total 600 ml Balance 600 ml Exam Constitutional: alert, oriented Respiratory: crackles/rales, diminished breath sounds Cardiovascular: regular rate and rhythm Musculoskeletal: nl extremities to inspection Results Result Diagram: 11/27/16 0539 11/28/16 0558 Results 24 hrs Laboratory Tests Test 11/27/16 11:53 11/27/16 12:28 11/27/16 16:50 11/27/16 17:46 Bedside Glucose 89 107 66 L 97 Test 11/27/16 21:52 11/28/16 02:16 11/28/16 05:58 11/28/16 08:32 Bedside Glucose 229 H 86 95 Anion Gap 23 H Blood Urea Nitrogen 75 H Calcium Level 8.7 Carbon Dioxide Level 22 Chloride Level 92 L Creatinine 4.64 H Glucose Level 56 L Potassium Level 4.7 Sodium Level 132 L Medications Medications Current Medications Carbidopa/Levodopa (Sinemet (25/ 250)) 0.5 tab BID PO Last administered on 08:56; Admin Dose 0.5 TAB; Start 11/26/16 at 01:33 Clonazepam (Klonopin) 2 mg QHS PO Last administered on 11/27/16 20:54; Admin Dose 2 MG; Start 11/26/16 at 01:33 Pramipexole (Mirapex) 0.25 mg HS PO Last administered on 11/27/16 20:55; Admin Dose 0.25 MG; Start 11/26/16 at 21:00 Quetiapine Fumarate (Seroquel) 100 mg BID PO Last administered on 11/28/16 08: 56; Admin Dose 100 MG; Start 11/26/16 at 01:33 Famotidine (Pepcid) 20 mg DAILY PO Last administered on 11/28/16 08:56; Admin Dose 20 MG; Start 11/26/16 at 09:00 Heparin Sodium (Porcine) (Heparin (5000 Units/0.5 ml)) 5,000 unit BID SC Last administered on 11/28/16 09:04; Admin Dose 5,000 UNIT; Start 11/26/16 at 09:00 Ondansetron HCl (Zofran Inj) 4 mg Q4H PRN IV NAUSEA AND/OR VOMITING; Start 11/26 at 01:00 Acetaminophen (Tylenol Tab) 650 mg Q6H PRN PO PAIN AND OR ELEVATED TEMP Last administered on 11/27/16 03:11; Admin Dose 650 MG; Start 11/26/16 at 01:00 Hydralazine HCl (Apresoline) 10 mg BID PO Last administered on 11/28/16 08:56; Admin Dose 10 MG; Start 11/26/16 at 01:33 Hydralazine HCl (Apresoline) 10 mg Q4H PRN IV ELEVATED BLOOD PRESSURE Last administered on 11/27/16 16:48; Admin Dose 10 MG; Start 11/26/16 at 01:00 Diagnostic Test (Pha) (Accucheck) 1 ea 02 XX Last administered on 11/28/16 02: 25; Admin Dose 1 EA; Start 11/26/16 at 02:00 Miscellaneous Information 1 ea NOTE XX ; Start 11/26/16 at 01:30 Glucose (Glutose) 15 gm Q15M PRN PO DECREASED GLUCOSE; Start 11/26/16 at 01:30 Glucose (Glutose) 22.5 gm Q15M PRN PO DECREASED GLUCOSE; Start 11/26/16 at 01:30 Dextrose (D50w Syringe) 25 ml Q15M PRN IV DECREASED GLUCOSE; Start 11/26/16 at 01:30 Dextrose (D50w Syringe) 50 ml Q15M PRN IV DECREASED GLUCOSE; Start 11/26/16 at 01:30 Glucagon (Glucagen) 1 mg Q15M PRN IM DECREASED GLUCOSE; Start 11/26/16 at 01:30 Glucose (Glutose) 15 gm Q15M PRN BUCCAL DECREASED GLUCOSE Last administered on 11/27/16 16:58; Admin Dose 15 GM; Start 11/26/16 at 01:30 Acetaminophen/ Hydrocodone Bitart ([place] (5/325)) 1 tab Q4H PRN PO PAIN LEVEL 6 -10; Start 11/28/16 at 02:30 PREMA BEJARANO MD Nov 28, 2016 09:49
--- NOTE | 2016-11-28 11:46 | PN ---
Date/Time of Note Date/Time of Note DATE: 11/28/16 TIME: 11:44 Assessment/Plan VTE Prophylaxis VTE Prophylaxis Intervention: heparin Lines/Catheters IV C[facility]ter Type (from [facility]): Saline Lock Urinary Cath still in place: No Assessment/Plan Assessment/Plan 1. ESRD on HD- HD today 2. Hyperkalemia 2/2 ESRD-resolved 3. Parkinson's disease 4. Diabetes mellitus- lantus has been discontinued due to hypoglycemia 5. Chronic obstructive pulmonary disease-stable PPx- Heparin Subjective 24 Hr Interval Summary Free Text/Dictation HD today, stable Exam/Review of Systems Vital Signs Vitals Vital Signs Date Time Temp Pulse Resp B/P Pulse Ox O2 Delivery O2 Flow Rate FiO2 11/28/16 11:19 97.7 70 16 128/58 96 11/26/16 04:02 Room Air Intake and Output 11/27/16 11/27/16 11/28/16 15:00 23:00 07:00 Intake Total 600 ml Balance 600 ml Exam Constitutional: alert Respiratory: clear to auscultation Cardiovascular: regular rate and rhythm Gastrointestinal: soft, No distended Musculoskeletal: nl extremities to inspection Results Result Diagram: 11/27/16 0539 11/28/16 0558 Results 24 hrs Laboratory Tests Test 11/27/16 11:53 11/27/16 12:28 11/27/16 16:50 11/27/16 17:46 Bedside Glucose 89 107 66 L 97 Test 11/27/16 21:52 11/28/16 02:16 11/28/16 05:58 11/28/16 08:32 Bedside Glucose 229 H 86 95 Anion Gap 23 H Blood Urea Nitrogen 75 H Calcium Level 8.7 Carbon Dioxide Level 22 Chloride Level 92 L Creatinine 4.64 H Glucose Level 56 L Potassium Level 4.7 Sodium Level 132 L Medications Medications Current Medications Carbidopa/Levodopa (Sinemet (25/ 250)) 0.5 tab BID PO Last administered on 08:56; Admin Dose 0.5 TAB; Start 11/26/16 at 01:33 Clonazepam (Klonopin) 2 mg QHS PO Last administered on 11/27/16 20:54; Admin Dose 2 MG; Start 11/26/16 at 01:33 Pramipexole (Mirapex) 0.25 mg HS PO Last administered on 11/27/16 20:55; Admin Dose 0.25 MG; Start 11/26/16 at 21:00 Quetiapine Fumarate (Seroquel) 100 mg BID PO Last administered on 11/28/16 08: 56; Admin Dose 100 MG; Start 11/26/16 at 01:33 Famotidine (Pepcid) 20 mg DAILY PO Last administered on 11/28/16 08:56; Admin Dose 20 MG; Start 11/26/16 at 09:00 Heparin Sodium (Porcine) (Heparin (5000 Units/0.5 ml)) 5,000 unit BID SC Last administered on 11/28/16 09:04; Admin Dose 5,000 UNIT; Start 11/26/16 at 09:00 Ondansetron HCl (Zofran Inj) 4 mg Q4H PRN IV NAUSEA AND/OR VOMITING; Start 11/26 at 01:00 Acetaminophen (Tylenol Tab) 650 mg Q6H PRN PO PAIN AND OR ELEVATED TEMP Last administered on 11/27/16 03:11; Admin Dose 650 MG; Start 11/26/16 at 01:00 Hydralazine HCl (Apresoline) 10 mg BID PO Last administered on 11/28/16 08:56; Admin Dose 10 MG; Start 11/26/16 at 01:33 Hydralazine HCl (Apresoline) 10 mg Q4H PRN IV ELEVATED BLOOD PRESSURE Last administered on 11/27/16 16:48; Admin Dose 10 MG; Start 11/26/16 at 01:00 Diagnostic Test (Pha) (Accucheck) 1 ea 02 XX Last administered on 11/28/16 02: 25; Admin Dose 1 EA; Start 11/26/16 at 02:00 Miscellaneous Information 1 ea NOTE XX ; Start 11/26/16 at 01:30 Glucose (Glutose) 15 gm Q15M PRN PO DECREASED GLUCOSE; Start 11/26/16 at 01:30 Glucose (Glutose) 22.5 gm Q15M PRN PO DECREASED GLUCOSE; Start 11/26/16 at 01:30 Dextrose (D50w Syringe) 25 ml Q15M PRN IV DECREASED GLUCOSE; Start 11/26/16 at 01:30 Dextrose (D50w Syringe) 50 ml Q15M PRN IV DECREASED GLUCOSE; Start 11/26/16 at 01:30 Glucagon (Glucagen) 1 mg Q15M PRN IM DECREASED GLUCOSE; Start 11/26/16 at 01:30 Glucose (Glutose) 15 gm Q15M PRN BUCCAL DECREASED GLUCOSE Last administered on 11/27/16t 16:58; Admin Dose 15 GM; Start 11/26/16 at 01:30 Acetaminophen/ Hydrocodone Bitart ([place] (5/325)) 1 tab Q4H PRN PO PAIN LEVEL 6 -10; Start 11/28/16 at 02:30 SPENCER HOOPER MD Nov 28, 2016 11:46
[2016-11-28] MEDS: clonAZEPAM 0.5 MG TAB PO SCH (21:32)
[2016-11-28] MEDS: PRAMIPEXOLE 0.25 MG TAB PO SCH (21:34)
[2016-11-29] VITALS (10 sets, daily range): BP systolic 160–183; BP diastolic 71–81; PULSE 62–75; RESP 16–18
[2016-11-29] MEDS: ACCUCHECK XX SCH (02:00)
[2016-11-29 06:51] LABS: ADD SCAN DIFF NO
[2016-11-29 07:05] LABS: INR 1.06; PROTIME 13.8 Sec (12.2-14.2); PT RATIO 1.1
[2016-11-29 07:06] LABS: PARTIAL THROMBOPLASTIN TIME 33.7 Sec (25.0-35.0)
[2016-11-29 07:09] LABS: BASOPHIL # 0.1 10^3/ul (0.0-0.1); BASOPHILS % 1.4 % (0.0-2.0); EOSINOPHILS # 0.7 10^3/ul (0.0-0.5); EOSINOPHILS % 13.4 % (0.0-7.0); HEMATOCRIT 37.6 % (37.0-47.0); HEMOGLOBIN 12.5 g/dl (12.0-16.0); LYMPHOCYTES # 1.3 10^3/ul (0.8-2.9); LYMPHOCYTES % 25.5 % (15.0-51.0); MEAN CORPUSCULAR HEMOGLOBIN 33.8 pg (29.0-33.0); MEAN CORPUSCULAR HGB CONC 33.2 g/dl (32.0-37.0); MEAN CORPUSCULAR VOLUME 101.6 fl (82.0-101.0); MEAN PLATELET VOLUME 10.6 fl (7.4-10.4); MONOCYTE # 0.6 10^3/ul (0.3-0.9); NEUTROPHIL # 2.4 10^3/ul (1.6-7.5); NEUTROPHILS % 48.5 % (39.0-77.0); PLATELET COUNT 135 10^3/UL (140-415)
[2016-11-29 07:10] LABS: ALBUMIN 3.7 g/dl (3.3-4.9); POTASSIUM 4.3 mmol/L (3.5-5.1)
[2016-11-29 07:12] LABS: CREATININE 3.94 mg/dl (0.44-1.00)
[2016-11-29 07:13] LABS: ALBUMIN/GLOBULIN RATIO 0.94; TOTAL PROTEIN 7.6 g/dl (6.1-8.1)
[2016-11-29] MEDS: INSULIN ASPART [NOVOLOG] 3 ML PEN SC SCH ×4 (07:49→20:45)
[2016-11-29] MEDS: FAMOTIDINE 20 MG TAB PO SCH (08:17)
[2016-11-29] MEDS: CARBIDOPA/LEVODOPA (25/250) TAB PO SCH ×2 (08:17→20:35)
[2016-11-29] MEDS: SEVELAMER 800 MG TAB PO SCH ×3 (08:17→17:31)
[2016-11-29] MEDS: QUETIAPINE 100 MG TAB PO SCH ×2 (08:18→20:35)
[2016-11-29] MEDS: HEPARIN 5,000 UNIT/0.5 ML SYG SC SCH ×2 (08:22→20:38)
--- NOTE | 2016-11-29 08:29 | PN ---
Date/Time of Note Date/Time of Note DATE: 11/29/16 TIME: 08:27 Assessment/Plan VTE Prophylaxis VTE Prophylaxis Intervention: other Lines/Catheters IV Catheter Type (from Nrs): Saline Lock Urinary Cath still in place: No Assessment/Plan Assessment/Plan 1. End-stage renal disease, I oredered HD tomm, await case management eval->OP dialysis 2. Hypertension, not controlled, I added low dose amlodipine 3. Anemia sec to ckd Subjective 24 Hr Interval Summary Respiratory: No shortness of breath Cardiovascular: No chest pain Gastrointestinal: no complaints Genitourinary: no complaints Exam/Review of Systems Vital Signs Vitals Vital Signs Date Time Temp Pulse Resp B/P Pulse Ox O2 Delivery O2 Flow Rate FiO2 11/29/16 07:25 97.6 74 16 183/78 97 178/81 11/28/16 20:00 Room Air Intake and Output 11/28/16 11/28/16 11/29/16 15:00 23:00 07:00 Intake Total 300 ml 880 ml 600 ml Output Total 2800 ml Balance -2500 ml 880 ml 600 ml Exam Neck: No jvd Respiratory: clear to auscultation Cardiovascular: regular rate and rhythm Gastrointestinal: soft Extremities: No edema (and no calf tend) Results Result Diagram: 11/29/16 0630 11/29/16 0630 Results 24 hrs Laboratory Tests Test 11/28/16 08:32 11/28/16 12:08 11/28/16 17:48 11/28/16 21:22 Bedside Glucose 95 99 145 155 Test 11/29/16 02:18 11/29/16 06:30 11/29/16 07:38 Bedside Glucose 161 81 Activated Partial Thromboplast Time 33.7 Alanine Aminotransferase (ALT/SGPT) 15 Albumin 3.7 Albumin/Globulin Ratio 0.94 Alkaline Phosphatase 316 H Anion Gap 21 H Aspartate Amino Transf (AST/SGOT) 39 Basophils # 0.1 Basophils % 1.4 Blood Urea Nitrogen 51 H Calcium Level 9.0 Carbon Dioxide Level 27 Chloride Level 93 L Creatinine 3.94 H Direct Bilirubin 0.00 Eosinophils # 0.7 H Eosinophils % 13.4 H Globulin 3.90 H Glucose Level 90 Hematocrit 37.6 Hemoglobin 12.5 INR International Normalized Ratio 1.06 Indirect Bilirubin 0.0 Lymphocytes # 1.3 Lymphocytes % 25.5 Mean Corpuscular Hemoglobin 33.8 H Mean Corpuscular Hemoglobin Concent 33.2 Mean Corpuscular Volume 101.6 H Mean Platelet Volume 10.6 H Monocytes # 0.6 Monocytes % 11.0 Neutrophils # 2.4 Neutrophils % 48.5 Nucleated Red Blood Cells # 0.0 Nucleated Red Blood Cells % 0.0 Platelet Count 135 L Potassium Level 4.3 Prothrombin Time 13.8 Prothrombin Time Ratio 1.1 Red Blood Count 3.70 L Red Cell Distribution Width 14.0 Sodium Level 137 Total Bilirubin 0.0 L Total Protein 7.6 White Blood Count 5.0 Medications Medications Current Medications Carbidopa/Levodopa (Sinemet (25/ 250)) 0.5 tab BID PO Last administered on 08:17; Admin Dose 0.5 TAB; Start 11/26/16 at 01:33 Clonazepam (Klonopin) 2 mg QHS PO Last administered on 11/28/16 21:32; Admin Dose 2 MG; Start 11/26/16 at 01:33 Pramipexole (Mirapex) 0.25 mg HS PO Last administered on 11/28/16 21:34; Admin Dose 0.25 MG; Start 11/26/16 at 21:00 Quetiapine Fumarate (Seroquel) 100 mg BID PO Last administered on 11/29/16 08: 18; Admin Dose 100 MG; Start 11/26/16 at 01:33 Famotidine (Pepcid) 20 mg DAILY PO Last administered on 11/29/16 08:17; Admin Dose 20 MG; Start 11/26/16 at 09:00 Heparin Sodium (Porcine) (Heparin (5000 Units/0.5 ml)) 5,000 unit BID SC Last administered on 11/29/16 08:22; Admin Dose 5,000 UNIT; Start 11/26/16 at 09:00 Ondansetron HCl (Zofran Inj) 4 mg Q4H PRN IV NAUSEA AND/OR VOMITING; Start 11/26 at 01:00 Acetaminophen (Tylenol Tab) 650 mg Q6H PRN PO PAIN AND OR ELEVATED TEMP Last administered on 11/27/16 03:11; Admin Dose 650 MG; Start 11/26/16 at 01:00 Hydralazine HCl (Apresoline) 10 mg BID PO Last administered on 11/29/16 08:18; Admin Dose 10 MG; Start 11/26/16 at 01:33 Hydralazine HCl (Apresoline) 10 mg Q4H PRN IV ELEVATED BLOOD PRESSURE Last administered on 11/27/16 16:48; Admin Dose 10 MG; Start 11/26/16 at 01:00 Diagnostic Test (Pha) (Accucheck) 1 ea 02 XX Last administered on 11/28/16 02: 25; Admin Dose 1 EA; Start 11/26/16 at 02:00 Miscellaneous Information 1 ea NOTE XX ; Start 11/26/16 at 01:30 Glucose (Glutose) 15 gm Q15M PRN PO DECREASED GLUCOSE; Start 11/26/16 at 01:30 Glucose (Glutose) 22.5 gm Q15M PRN PO DECREASED GLUCOSE; Start 11/26/16 at 01:30 Dextrose (D50w Syringe) 25 ml Q15M PRN IV DECREASED GLUCOSE; Start 11/26/16 at 01:30 Dextrose (D50w Syringe) 50 ml Q15M PRN IV DECREASED GLUCOSE; Start 11/26/16 at 01:30 Glucagon (Glucagen) 1 mg Q15M PRN IM DECREASED GLUCOSE; Start 11/26/16 at 01:30 Glucose (Glutose) 15 gm Q15M PRN BUCCAL DECREASED GLUCOSE Last administered on 11/27/16 16:58; Admin Dose 15 GM; Start 11/26/16 at 01:30 Acetaminophen/ Hydrocodone Bitart ([place] (5/325)) 1 tab Q4H PRN PO PAIN LEVEL 6 -10; Start 11/28/16 at 02:30 KRISSY CUELLO MD Nov 29, 2016 08:29
[2016-11-29] MEDS: AMLODIPINE 2.5 MG TAB PO SCH ×2 (10:34→20:35)
--- NOTE | 2016-11-29 10:43 | PN ---
Date/Time of Note Date/Time of Note DATE: 11/29/16 TIME: 10:42 Assessment/Plan VTE Prophylaxis VTE Prophylaxis Intervention: heparin Lines/Catheters IV Catheter Type (from Nrs): Saline Lock Urinary Cath still in place: No Assessment/Plan Assessment/Plan 1. ESRD on HD- HD today 2. Hyperkalemia 2/2 ESRD-resolved 3. Parkinson's disease 4. Diabetes mellitus- lantus has been discontinued due to hypoglycemia 5. Chronic obstructive pulmonary disease-stable PPx- Heparin low dose amlodipine added for better BP Control need outpatient HD placement can go to telemtery floor Subjective 24 Hr Interval Summary Free Text/Dictation s/p HD yesterday 2.5 L removed, BP stable, low dose amlodipine added Exam/Review of Systems Vital Signs Vitals Vital Signs Date Time Temp Pulse Resp B/P Pulse Ox O2 Delivery O2 Flow Rate FiO2 11/29/16 08:36 74 11/29/16 07:25 97.6 16 183/78 97 178/81 11/28/16 20:00 Room Air Intake and Output 11/28/16 11/28/16 11/29/16 15:00 23:00 07:00 Intake Total 300 ml 880 ml 600 ml Output Total 2800 ml Balance -2500 ml 880 ml 600 ml Exam Constitutional: alert Respiratory: clear to auscultation Cardiovascular: regular rate and rhythm Gastrointestinal: soft, No distended Musculoskeletal: nl extremities to inspection Results Result Diagram: 11/29/16 0630 11/29/16 0630 Results 24 hrs Laboratory Tests Test 11/28/16 12:08 11/28/16 17:48 11/28/16 21:22 11/29/16 02:18 Bedside Glucose 99 145 155 161 Test 11/29/16 06:30 11/29/16 07:38 Activated Partial Thromboplast Time 33.7 Alanine Aminotransferase (ALT/SGPT) 15 Albumin 3.7 Albumin/Globulin Ratio 0.94 Alkaline Phosphatase 316 H Anion Gap 21 H Aspartate Amino Transf (AST/SGOT) 39 Basophils # 0.1 Basophils % 1.4 Blood Urea Nitrogen 51 H Calcium Level 9.0 Carbon Dioxide Level 27 Chloride Level 93 L Creatinine 3.94 H Direct Bilirubin 0.00 Eosinophils # 0.7 H Eosinophils % 13.4 H Globulin 3.90 H Glucose Level 90 Hematocrit 37.6 Hemoglobin 12.5 INR International Normalized Ratio 1.06 Indirect Bilirubin 0.0 Lymphocytes # 1.3 Lymphocytes % 25.5 Mean Corpuscular Hemoglobin 33.8 H Mean Corpuscular Hemoglobin Concent 33.2 Mean Corpuscular Volume 101.6 H Mean Platelet Volume 10.6 H Monocytes # 0.6 Monocytes % 11.0 Neutrophils # 2.4 Neutrophils % 48.5 Nucleated Red Blood Cells # 0.0 Nucleated Red Blood Cells % 0.0 Platelet Count 135 L Potassium Level 4.3 Prothrombin Time 13.8 Prothrombin Time Ratio 1.1 Red Blood Count 3.70 L Red Cell Distribution Width 14.0 Sodium Level 137 Total Bilirubin 0.0 L Total Protein 7.6 White Blood Count 5.0 Bedside Glucose 81 Medications Medications Current Medications Carbidopa/Levodopa (Sinemet (25/ 250)) 0.5 tab BID PO Last administered on 08:17; Admin Dose 0.5 TAB; Start 11/26/16 at 01:33 Clonazepam (Klonopin) 2 mg QHS PO Last administered on 11/28/16 21:32; Admin Dose 2 MG; Start 11/26/16 at 01:33 Pramipexole (Mirapex) 0.25 mg HS PO Last administered on 11/28/16 21:34; Admin Dose 0.25 MG; Start 11/26/16 at 21:00 Quetiapine Fumarate (Seroquel) 100 mg BID PO Last administered on 11/29/16 08: 18; Admin Dose 100 MG; Start 11/26/16 at 01:33 Famotidine (Pepcid) 20 mg DAILY PO Last administered on 11/29/16 08:17; Admin Dose 20 MG; Start 11/26/16 at 09:00 Heparin Sodium (Porcine) (Heparin (5000 Units/0.5 ml)) 5,000 unit BID SC Last administered on 11/29/16 08:22; Admin Dose 5,000 UNIT; Start 11/26/16 at 09:00 Ondansetron HCl (Zofran Inj) 4 mg Q4H PRN IV NAUSEA AND/OR VOMITING; Start 11/26 at 01:00 Acetaminophen (Tylenol Tab) 650 mg Q6H PRN PO PAIN AND OR ELEVATED TEMP Last administered on 11/27/16 03:11; Admin Dose 650 MG; Start 11/26/16 at 01:00 Hydralazine HCl (Apresoline) 10 mg BID PO Last administered on 11/29/16 08:18; Admin Dose 10 MG; Start 11/26/16 at 01:33 Hydralazine HCl (Apresoline) 10 mg Q4H PRN IV ELEVATED BLOOD PRESSURE Last administered on 11/27/16 16:48; Admin Dose 10 MG; Start 11/26/16 at 01:00 Diagnostic Test (Pha) (Accucheck) 1 ea 02 XX Last administered on 11/28/16 02: 25; Admin Dose 1 EA; Start 11/26/16 at 02:00 Miscellaneous Information 1 ea NOTE XX ; Start 11/26/16 at 01:30 Glucose (Glutose) 15 gm Q15M PRN PO DECREASED GLUCOSE; Start 11/26/16 at 01:30 Glucose (Glutose) 22.5 gm Q15M PRN PO DECREASED GLUCOSE; Start 11/26/16 at 01:30 Dextrose (D50w Syringe) 25 ml Q15M PRN IV DECREASED GLUCOSE; Start 11/26/16 at 01:30 Dextrose (D50w Syringe) 50 ml Q15M PRN IV DECREASED GLUCOSE; Start 11/26/16 at 01:30 Glucagon (Glucagen) 1 mg Q15M PRN IM DECREASED GLUCOSE; Start 11/26/16 at 01:30 Glucose (Glutose) 15 gm Q15M PRN BUCCAL DECREASED GLUCOSE Last administered on 11/27/16 16:58; Admin Dose 15 GM; Start 11/26/16 at 01:30 Acetaminophen/ Hydrocodone Bitart ([place] (5/325)) 1 tab Q4H PRN PO PAIN LEVEL 6 -10; Start 11/28/16 at 02:30 Amlodipine Besylate (Norvasc) 2.5 mg BID PO Last administered on 11/29/16 10:34 ; Admin Dose 2.5 MG; Start 11/29/16 at 09:00 SPENCER HOOPER MD Nov 29, 2016 10:43
[2016-11-29] MEDS: PRAMIPEXOLE 0.25 MG TAB PO SCH (20:35)
[2016-11-29] MEDS: clonAZEPAM 0.5 MG TAB PO SCH (20:45)
[2016-11-30] VITALS (9 sets, daily range): BP systolic 115–170; BP diastolic 65–78; PULSE 72–80; RESP 18–20
[2016-11-30] MEDS: ACCUCHECK XX SCH (02:00)
[2016-11-30 06:54] LABS: ADD SCAN DIFF NO
[2016-11-30 07:05] LABS: BASOPHIL # 0.1 10^3/ul (0.0-0.1); BASOPHILS % 1.1 % (0.0-2.0); EOSINOPHILS # 0.6 10^3/ul (0.0-0.5); EOSINOPHILS % 9.9 % (0.0-7.0); HEMATOCRIT 37.3 % (37.0-47.0); LYMPHOCYTES # 1.3 10^3/ul (0.8-2.9); LYMPHOCYTES % 19.7 % (15.0-51.0); MEAN CORPUSCULAR HGB CONC 32.2 g/dl (32.0-37.0); MEAN CORPUSCULAR VOLUME 102.5 fl (82.0-101.0); MEAN PLATELET VOLUME 10.6 fl (7.4-10.4); MONOCYTE # 0.6 10^3/ul (0.3-0.9); MONOCYTES % 8.7 % (0.0-11.0); NEUTROPHIL # 3.8 10^3/ul (1.6-7.5); NEUTROPHILS % 60.4 % (39.0-77.0); PLATELET COUNT 127 10^3/UL (140-415); RED BLOOD COUNT 3.64 10^6/ul (4.20-5.40); RED CELL DISTRIBUTION WIDTH 14.1 % (11.5-14.5); WHITE BLOOD COUNT 6.4 10^3/ul (4.8-10.8)
[2016-11-30 07:12] LABS: INR 1.07; PROTIME 13.9 Sec (12.2-14.2); PT RATIO 1.1
[2016-11-30 07:13] LABS: PARTIAL THROMBOPLASTIN TIME 35.9 Sec (25.0-35.0)
[2016-11-30 07:14] LABS: POTASSIUM 5.4 mmol/L (3.5-5.1)
[2016-11-30 07:17] LABS: CALCIUM 9.2 mg/dl (8.4-10.2); CREATININE 5.01 mg/dl (0.44-1.00); PHOSPHORUS 6.2 mg/dl (2.5-4.9)
[2016-11-30] MEDS: INSULIN ASPART [NOVOLOG] 3 ML PEN SC SCH ×5 (07:53→21:00)
[2016-11-30] MEDS: SEVELAMER 800 MG TAB PO SCH ×3 (07:55→17:46)
--- NOTE | 2016-11-30 07:58 | CONS ---
Date/Time of Note Date/Time of Note DATE: 11/30/16 TIME: 07:56 Assessment/Plan Assessment/Plan Additional Assessment/Plan 1. CKD, next HD today 2. K+ sl inc, will correct with HD 3. BP sl inc, will inc Amlodipine. 4. Await case management/dc planning regarding OP HD 5. P sl inc will rev meds regarding phoshate binder Consultation Date/Type/Reason Admit Date/Time Nov 25, 2016 at 22:35 Initial Consult Date Type of Consultation: Nephrology Detailed Summary Respiratory: pleuritic pain, shortness of breath Cardiovascular: No chest pain Gastrointestinal: no complaints Genitourinary: no complaints Exam/Review of Systems Vital Signs Vitals Vital Signs Date Time Temp Pulse Resp B/P Pulse Ox O2 Delivery O2 Flow Rate FiO2 11/29/16 20:00 98.1 71 16 162/75 98 Room Air Intake and Output 11/29/16 11/29/16 11/30/16 15:00 23:00 07:00 Intake Total 1080 ml 700 ml Balance 1080 ml 700 ml Exam Neck: No jvd Respiratory: clear to auscultation Cardiovascular: regular rate and rhythm Gastrointestinal: soft Extremities: No edema (and no calf tend) Results Result Diagram: 11/30/16 0609 11/30/16 0609 Results 24 hrs Laboratory Tests Test 11/29/16 12:18 11/29/16 17:22 11/29/16 20:26 11/30/16 06:09 Bedside Glucose 97 157 156 Activated Partial Thromboplast Time 35.9 H Anion Gap 21 H Basophils # 0.1 Basophils % 1.1 Blood Urea Nitrogen 72 H Calcium Level 9.2 Carbon Dioxide Level 26 Chloride Level 93 L Creatinine 5.01 H Eosinophils # 0.6 H Eosinophils % 9.9 H Glucose Level 85 Hematocrit 37.3 Hemoglobin 12.0 INR International Normalized Ratio 1.07 Lymphocytes # 1.3 Lymphocytes % 19.7 Mean Corpuscular Hemoglobin 33.0 Mean Corpuscular Hemoglobin Concent 32.2 Mean Corpuscular Volume 102.5 H Mean Platelet Volume 10.6 H Monocytes # 0.6 Monocytes % 8.7 Neutrophils # 3.8 Neutrophils % 60.4 Nucleated Red Blood Cells # 0.0 Nucleated Red Blood Cells % 0.0 Phosphorus Level 6.2 H Platelet Count 127 L Potassium Level 5.4 H Prothrombin Time 13.9 Prothrombin Time Ratio 1.1 Red Blood Count 3.64 L Red Cell Distribution Width 14.1 Sodium Level 135 White Blood Count 6.4 # Test 11/30/16 07:48 Bedside Glucose 102 Medications Medications Current Medications Carbidopa/Levodopa (Sinemet (25/ 250)) 0.5 tab BID PO Last administered on 20:35; Admin Dose 0.5 TAB; Start 11/26/16 at 01:33 Clonazepam (Klonopin) 2 mg QHS PO Last administered on 11/28/16 21:32; Admin Dose 2 MG; Start 11/26/16 at 01:33 Pramipexole (Mirapex) 0.25 mg HS PO Last administered on 11/29/16 20:35; Admin Dose 0.25 MG; Start 11/26/16 at 21:00 Quetiapine Fumarate (Seroquel) 100 mg BID PO Last administered on 11/29/16 20: 35; Admin Dose 100 MG; Start 11/26/16 at 01:33 Famotidine (Pepcid) 20 mg DAILY PO Last administered on 11/29/16 08:17; Admin Dose 20 MG; Start 11/26/16 at 09:00 Heparin Sodium (Porcine) (Heparin (5000 Units/0.5 ml)) 5,000 unit BID SC Last administered on 11/29/16 20:38; Admin Dose 5,000 UNIT; Start 11/26/16 at 09:00 Ondansetron HCl (Zofran Inj) 4 mg Q4H PRN IV NAUSEA AND/OR VOMITING; Start 11/26 at 01:00 Acetaminophen (Tylenol Tab) 650 mg Q6H PRN PO PAIN AND OR ELEVATED TEMP Last administered on 11/27/16 03:11; Admin Dose 650 MG; Start 11/26/16 at 01:00 Hydralazine HCl (Apresoline) 10 mg BID PO Last administered on 11/29/16 20:36; Admin Dose 10 MG; Start 11/26/16 at 01:33 Hydralazine HCl (Apresoline) 10 mg Q4H PRN IV ELEVATED BLOOD PRESSURE Last administered on 11/27/16 16:48; Admin Dose 10 MG; Start 11/26/16 at 01:00 Diagnostic Test (Pha) (Accucheck) 1 ea 02 XX Last administered on 11/28/16 02: 25; Admin Dose 1 EA; Start 11/26/16 at 02:00 Miscellaneous Information 1 ea NOTE XX ; Start 11/26/16 at 01:30 Glucose (Glutose) 15 gm Q15M PRN PO DECREASED GLUCOSE; Start 11/26/16 at 01:30 Glucose (Glutose) 22.5 gm Q15M PRN PO DECREASED GLUCOSE; Start 11/26/16 at 01:30 Dextrose (D50w Syringe) 25 ml Q15M PRN IV DECREASED GLUCOSE; Start 11/26/16 at 01:30 Dextrose (D50w Syringe) 50 ml Q15M PRN IV DECREASED GLUCOSE; Start 11/26/16 at 01:30 Glucagon (Glucagen) 1 mg Q15M PRN IM DECREASED GLUCOSE; Start 11/26/16 at 01:30 Glucose (Glutose) 15 gm Q15M PRN BUCCAL DECREASED GLUCOSE Last administered on 11/27/16 16:58; Admin Dose 15 GM; Start 11/26/16 at 01:30 Acetaminophen/ Hydrocodone Bitart ([place] (5/325)) 1 tab Q4H PRN PO PAIN LEVEL 6 -10; Start 11/28/16 at 02:30 Amlodipine Besylate (Norvasc) 2.5 mg BID PO Last administered on 11/29/16 20:35 ; Admin Dose 2.5 MG; Start 11/29/16 at 09:00 KRISSY CUELLO MD Nov 30, 2016 07:58
[2016-11-30] MEDS ORDERED: AMLODIPINE 2.5 MG TAB PO SCH (09:00)
[2016-11-30] MEDS: AMLODIPINE 5 MG TAB PO SCH ×2 (09:00→20:24)
[2016-11-30] MEDS: FAMOTIDINE 20 MG TAB PO SCH (09:04)
[2016-11-30] MEDS: HEPARIN 5,000 UNIT/0.5 ML SYG SC SCH ×2 (09:10→20:36)
[2016-11-30] MEDS: CARBIDOPA/LEVODOPA (25/250) TAB PO SCH ×2 (10:01→20:26)
[2016-11-30] MEDS: QUETIAPINE 100 MG TAB PO SCH ×2 (10:01→20:24)
[2016-11-30] MEDS: clonAZEPAM 0.5 MG TAB PO SCH (20:25)
[2016-11-30] MEDS: PRAMIPEXOLE 0.25 MG TAB PO SCH (20:26)
--- NOTE | 2016-11-30 21:27 | PN ---
Date/Time of Note Date/Time of Note DATE: 11/30/16 TIME: 21:25 Assessment/Plan VTE Prophylaxis VTE Prophylaxis Intervention: SCD's Lines/Catheters IV Catheter Type (from [facility]): Saline Lock Urinary Cath still in place: No Assessment/Plan Assessment/Plan 1. ESRD on HD 2. Hyperkalemia 2/2 ESRD-resolved 3. Parkinson's disease 4. Diabetes mellitus- lantus has been discontinued due to hypoglycemia 5. Chronic obstructive pulmonary disease-stable PPx- Heparin low dose amlodipine added for better BP Control need outpatient HD placement clinic manager to talk to family about pt plan for moving to [place] Subjective 24 Hr Interval Summary Free Text/Dictation no acute events, [facility] [facility] [place] Exam/Review of Systems Vital Signs Vitals Vital Signs Date Time Temp Pulse Resp B/P Pulse Ox O2 Delivery O2 Flow Rate FiO2 11/30/16 14:04 80 11/30/16 11:05 18 11/30/16 08:28 97.5 165/77 94 11/29/16 20:00 Room Air Intake and Output 11/29/16 11/29/16 11/30/16 15:00 23:00 07:00 Intake Total 1080 ml 700 ml Balance 1080 ml 700 ml Results Result Diagram: 11/30/16 0609 11/30/16 0609 Results 24 hrs Laboratory Tests Test 11/30/16 06:09 11/30/16 07:48 11/30/16 12:04 11/30/16 17:44 Activated Partial Thromboplast Time 35.9 H Anion Gap 21 H Basophils # 0.1 Basophils % 1.1 Blood Urea Nitrogen 72 H Calcium Level 9.2 Carbon Dioxide Level 26 Chloride Level 93 L Creatinine 5.01 H Eosinophils # 0.6 H Eosinophils % 9.9 H Glucose Level 85 Hematocrit 37.3 Hemoglobin 12.0 INR International Normalized Ratio 1.07 Lymphocytes # 1.3 Lymphocytes % 19.7 Mean Corpuscular Hemoglobin 33.0 Mean Corpuscular Hemoglobin Concent 32.2 Mean Corpuscular Volume 102.5 H Mean Platelet Volume 10.6 H Monocytes # 0.6 Monocytes % 8.7 Neutrophils # 3.8 Neutrophils % 60.4 Nucleated Red Blood Cells # 0.0 Nucleated Red Blood Cells % 0.0 Phosphorus Level 6.2 H Platelet Count 127 L Potassium Level 5.4 H Prothrombin Time 13.9 Prothrombin Time Ratio 1.1 Red Blood Count 3.64 L Red Cell Distribution Width 14.1 Sodium Level 135 White Blood Count 6.4 # Bedside Glucose 102 104 136 Medications Medications Current Medications Carbidopa/Levodopa (Sinemet (25/ 250)) 0.5 tab BID PO Last administered on 20:26; Admin Dose 0.5 TAB; Start 11/26/16 at 01:33 Clonazepam (Klonopin) 2 mg QHS PO Last administered on 11/30/16 20:25; Admin Dose 2 MG; Start 11/26/16 at 01:33 Pramipexole (Mirapex) 0.25 mg HS PO Last administered on 11/30/16 20:26; Admin Dose 0.25 MG; Start 11/26/16 at 21:00 Quetiapine Fumarate (Seroquel) 100 mg BID PO Last administered on 11/30/16 20: 24; Admin Dose 100 MG; Start 11/26/16 at 01:33 Famotidine (Pepcid) 20 mg DAILY PO Last administered on 11/30/16 09:04; Admin Dose 20 MG; Start 11/26/16 at 09:00 Heparin Sodium (Porcine) (Heparin (5000 Units/0.5 ml)) 5,000 unit BID SC Last administered on 11/30/16 20:36; Admin Dose 5,000 UNIT; Start 11/26/16 at 09:00 Ondansetron HCl (Zofran Inj) 4 mg Q4H PRN IV NAUSEA AND/OR VOMITING; Start 11/26 at 01:00 Acetaminophen (Tylenol Tab) 650 mg Q6H PRN PO PAIN AND OR ELEVATED TEMP Last administered on 11/27/16 03:11; Admin Dose 650 MG; Start 11/26/16 at 01:00 Hydralazine HCl (Apresoline) 10 mg BID PO Last administered on 11/30/16 20:25; Admin Dose 10 MG; Start 11/26/16 at 01:33 Hydralazine HCl (Apresoline) 10 mg Q4H PRN IV ELEVATED BLOOD PRESSURE Last administered on 11/27/16 16:48; Admin Dose 10 MG; Start 11/26/16 at 01:00 Diagnostic Test (Pha) (Accucheck) 1 ea 02 XX Last administered on 11/28/16 02: 25; Admin Dose 1 EA; Start 11/26/16 at 02:00 Miscellaneous Information 1 ea NOTE XX ; Start 11/26/16 at 01:30 Glucose (Glutose) 15 gm Q15M PRN PO DECREASED GLUCOSE; Start 11/26/16 at 01:30 Glucose (Glutose) 22.5 gm Q15M PRN PO DECREASED GLUCOSE; Start 11/26/16 at 01:30 Dextrose (D50w Syringe) 25 ml Q15M PRN IV DECREASED GLUCOSE; Start 11/26/16 at 01:30 Dextrose (D50w Syringe) 50 ml Q15M PRN IV DECREASED GLUCOSE; Start 11/26/16 at 01:30 Glucagon (Glucagen) 1 mg Q15M PRN IM DECREASED GLUCOSE; Start 11/26/16 at 01:30 Glucose (Glutose) 15 gm Q15M PRN BUCCAL DECREASED GLUCOSE Last administered on 11/27/16 16:58; Admin Dose 15 GM; Start 11/26/16 at 01:30 Acetaminophen/ Hydrocodone Bitart ([place] (5/325)) 1 tab Q4H PRN PO PAIN LEVEL 6 -10; Start 11/28/16 at 02:30 Amlodipine Besylate (Norvasc) 5 mg BID PO Last administered on 11/30/16 20:24; Admin Dose 5 MG; Start 11/30/16 at 09:00 SPENCER HOOPER MD Nov 30, 2016 21:27
[2016-12-01 00:18] VITALS: BP 153/68; PULSE 73; RESP 18
[2016-12-01] MEDS: ACCUCHECK XX SCH (02:00)
[2016-12-01 05:34] LABS: ADD SCAN DIFF NO
[2016-12-01 05:36] LABS: BASOPHIL # 0.1 10^3/ul (0.0-0.1); BASOPHILS % 1.1 % (0.0-2.0); EOSINOPHILS # 0.6 10^3/ul (0.0-0.5); EOSINOPHILS % 12.3 % (0.0-7.0); HEMATOCRIT 36.6 % (37.0-47.0); HEMOGLOBIN 12.1 g/dl (12.0-16.0); LYMPHOCYTES # 1.3 10^3/ul (0.8-2.9); LYMPHOCYTES % 25.7 % (15.0-51.0); MEAN CORPUSCULAR HEMOGLOBIN 33.5 pg (29.0-33.0); MEAN CORPUSCULAR HGB CONC 33.1 g/dl (32.0-37.0); MEAN CORPUSCULAR VOLUME 101.4 fl (82.0-101.0); MEAN PLATELET VOLUME 10.5 fl (7.4-10.4); MONOCYTE # 0.6 10^3/ul (0.3-0.9); MONOCYTES % 11.3 % (0.0-11.0); NEUTROPHIL # 2.6 10^3/ul (1.6-7.5); NEUTROPHILS % 49.4 % (39.0-77.0); PLATELET COUNT 119 10^3/UL (140-415); RED BLOOD COUNT 3.61 10^6/ul (4.20-5.40); RED CELL DISTRIBUTION WIDTH 13.8 % (11.5-14.5); WHITE BLOOD COUNT 5.2 10^3/ul (4.8-10.8)
[2016-12-01 06:02] LABS: POTASSIUM 4.4 mmol/L (3.5-5.1)
[2016-12-01 06:04] LABS: CREATININE 4.04 mg/dl (0.44-1.00)
[2016-12-01 06:05] LABS: CALCIUM 9.1 mg/dl (8.4-10.2)
[2016-12-01 07:36] VITALS: BP 149/67; RESP 18
--- NOTE | 2016-12-01 07:52 | CONS ---
Date/Time of Note Date/Time of Note DATE: 12/01/16 TIME: 07:50 Assessment/Plan Assessment/Plan Additional Assessment/Plan 1. CKD, stable, will plan on HD tomm 2. Await case management re: DC 3. No other intervention is needed Consultation Date/Type/Reason Admit Date/Time Nov 25, 2016 at 22:35 Type of Consultation: Nephrology Detailed Summary Respiratory: No shortness of breath Cardiovascular: No chest pain Gastrointestinal: no complaints Genitourinary: no complaints Exam/Review of Systems Vital Signs Vitals Vital Signs Date Time Temp Pulse Resp B/P Pulse Ox O2 Delivery O2 Flow Rate FiO2 12/01/16 07:36 97.4 67 18 149/67 99 12/01/16 00:18 Room Air Intake and Output 11/30/16 11/30/16 12/01/16 15:00 23:00 07:00 Intake Total 400 ml 720 ml Output Total 2400 ml Balance -2000 ml 720 ml Exam Neck: No jvd Respiratory: clear to auscultation Cardiovascular: regular rate and rhythm Gastrointestinal: soft Extremities: No edema Results Result Diagram: 12/01/16 0525 12/01/16 0525 Results 24 hrs Laboratory Tests Test 11/30/16 12:04 11/30/16 17:44 11/30/16 21:24 12/01/16 05:25 Bedside Glucose 104 136 147 Anion Gap 18 H Basophils # 0.1 Basophils % 1.1 Blood Urea Nitrogen 54 H Calcium Level 9.1 Carbon Dioxide Level 29 Chloride Level 94 L Creatinine 4.04 H Eosinophils # 0.6 H Eosinophils % 12.3 H Glucose Level 72 Hematocrit 36.6 L Hemoglobin 12.1 Lymphocytes # 1.3 Lymphocytes % 25.7 Mean Corpuscular Hemoglobin 33.5 H Mean Corpuscular Hemoglobin Concent 33.1 Mean Corpuscular Volume 101.4 H Mean Platelet Volume 10.5 H Monocytes # 0.6 Monocytes % 11.3 H Neutrophils # 2.6 Neutrophils % 49.4 Nucleated Red Blood Cells # 0.0 Nucleated Red Blood Cells % 0.0 Platelet Count 119 L Potassium Level 4.4 Red Blood Count 3.61 L Red Cell Distribution Width 13.8 Sodium Level 137 White Blood Count 5.2 Medications Medications Current Medications Carbidopa/Levodopa (Sinemet (25/ 250)) 0.5 tab BID PO Last administered on 20:26; Admin Dose 0.5 TAB; Start 11/26/16 at 01:33 Clonazepam (Klonopin) 2 mg QHS PO Last administered on 11/30/16 20:25; Admin Dose 2 MG; Start 11/26/16 at 01:33 Pramipexole (Mirapex) 0.25 mg HS PO Last administered on 11/30/16 20:26; Admin Dose 0.25 MG; Start 11/26/16 at 21:00 Quetiapine Fumarate (Seroquel) 100 mg BID PO Last administered on 11/30/16 20: 24; Admin Dose 100 MG; Start 11/26/16 at 01:33 Famotidine (Pepcid) 20 mg DAILY PO Last administered on 11/30/16 09:04; Admin Dose 20 MG; Start 11/26/16 at 09:00 Heparin Sodium (Porcine) (Heparin (5000 Units/0.5 ml)) 5,000 unit BID SC Last administered on 11/30/16 20:36; Admin Dose 5,000 UNIT; Start 11/26/16 at 09:00 Ondansetron HCl (Zofran Inj) 4 mg Q4H PRN IV NAUSEA AND/OR VOMITING; Start 11/26 at 01:00 Acetaminophen (Tylenol Tab) 650 mg Q6H PRN PO PAIN AND OR ELEVATED TEMP Last administered on 11/27/16 03:11; Admin Dose 650 MG; Start 11/26/16 at 01:00 Hydralazine HCl (Apresoline) 10 mg BID PO Last administered on 11/30/16 20:25; Admin Dose 10 MG; Start 11/26/16 at 01:33 Hydralazine HCl (Apresoline) 10 mg Q4H PRN IV ELEVATED BLOOD PRESSURE Last administered on 11/27/16 16:48; Admin Dose 10 MG; Start 11/26/16 at 01:00 Diagnostic Test (Pha) (Accucheck) 1 ea 02 XX Last administered on 11/28/16 02: 25; Admin Dose 1 EA; Start 11/26/16 at 02:00 Miscellaneous Information 1 ea NOTE XX ; Start 11/26/16 at 01:30 Glucose (Glutose) 15 gm Q15M PRN PO DECREASED GLUCOSE; Start 11/26/16 at 01:30 Glucose (Glutose) 22.5 gm Q15M PRN PO DECREASED GLUCOSE; Start 11/26/16 at 01:30 Dextrose (D50w Syringe) 25 ml Q15M PRN IV DECREASED GLUCOSE; Start 11/26/16 at 01:30 Dextrose (D50w Syringe) 50 ml Q15M PRN IV DECREASED GLUCOSE; Start 11/26/16 at 01:30 Glucagon (Glucagen) 1 mg Q15M PRN IM DECREASED GLUCOSE; Start 11/26/16 at 01:30 Glucose (Glutose) 15 gm Q15M PRN BUCCAL DECREASED GLUCOSE Last administered on 11/27/16 16:58; Admin Dose 15 GM; Start 11/26/16 at 01:30 Acetaminophen/ Hydrocodone Bitart ([place] (5/325)) 1 tab Q4H PRN PO PAIN LEVEL 6 -10; Start 11/28/16 at 02:30 Amlodipine Besylate (Norvasc) 5 mg BID PO Last administered on 11/30/16 20:24; Admin Dose 5 MG; Start 11/30/16 at 09:00 KRISSY CUELLO MD Dec 01, 2016 07:51
[2016-12-01] MEDS: INSULIN ASPART [NOVOLOG] 3 ML PEN SC SCH ×4 (08:15→20:41)
[2016-12-01] MEDS: SEVELAMER 800 MG TAB PO SCH ×3 (09:22→17:24)
[2016-12-01] MEDS: FAMOTIDINE 20 MG TAB PO SCH (09:23)
[2016-12-01] MEDS: CARBIDOPA/LEVODOPA (25/250) TAB PO SCH ×2 (09:23→20:37)
[2016-12-01] MEDS: QUETIAPINE 100 MG TAB PO SCH ×2 (09:23→20:37)
[2016-12-01] MEDS: AMLODIPINE 5 MG TAB PO SCH ×2 (09:23→20:37)
[2016-12-01] MEDS: HEPARIN 5,000 UNIT/0.5 ML SYG SC SCH ×2 (09:27→20:39)
[2016-12-01] MEDS: DOCUSATE SODIUM 100 MG CAP PO PRN ×2 (13:14→20:36)
[2016-12-01] MEDS: POLYETHYLENE GLYCOL 17 GM PACKET PO PRN (13:15)
--- NOTE | 2016-12-01 14:08 | RADRPT ---
PROCEDURE: XR Chest. CLINICAL INDICATION: Shortness of breath. TECHNIQUE: Single frontal view. COMPARISON: 05/19/2016. FINDINGS: There is mild interstitial pulmonary edema, slightly improved. The lungs are otherwise clear. The heart is enlarged. Calcification is present in the aorta consistent with atherosclerosis. There is a small right pleural effusion. There is no left pleural effusion. There is no pneumothor ax. There are old healed fractures of the right ribs and left distal clavicle. IMPRESSION: 1. Improved appearance of the lungs with mild pulmonary edema. 2. Cardiomegaly and atherosclerosis. 3. Small right pleural effusion. 4. Old healed fractures of the right ribs and left distal clavicle. RPTAT: QQ .Kevin Jackson MD, MD Date Time Electronically viewed and signed by .Kevin Jackson MD, on 12/01/2016 14:07 .R/
[2016-12-01] MEDS: ACETAMINOPHEN 325 MG TAB PO PRN (16:11)
[2016-12-01 19:00] VITALS: BP 149/65; RESP 16
[2016-12-01] MEDS: clonAZEPAM 0.5 MG TAB PO SCH (20:36)
[2016-12-01] MEDS: PRAMIPEXOLE 0.25 MG TAB PO SCH (20:37)
--- NOTE | 2016-12-01 22:03 | PN ---
Date/Time of Note Date/Time of Note DATE: 12/01/16 TIME: 22:03 Assessment/Plan VTE Prophylaxis VTE Prophylaxis Intervention: heparin Lines/Catheters IV Catheter Type (from Nrs): Saline Lock Urinary Cath still in place: No Assessment/Plan Assessment/Plan 1. ESRD on HD 2. Hyperkalemia 2/2 ESRD-resolved 3. Parkinson's disease 4. Diabetes mellitus- lantus has been discontinued due to hypoglycemia 5. Chronic obstructive pulmonary disease-stable PPx- Heparin low dose amlodipine added for better BP Control need outpatient HD placement Subjective 24 Hr Interval Summary Free Text/Dictation plan for HD today, awaiting HD placement Exam/Review of Systems Vital Signs Vitals Vital Signs Date Time Temp Pulse Resp B/P Pulse Ox O2 Delivery O2 Flow Rate FiO2 12/01/16 19:00 98.1 62 16 149/65 94 149/65 12/01/16 00:18 Room Air Intake and Output 11/30/16 11/30/16 12/01/16 15:00 23:00 07:00 Intake Total 400 ml 720 ml Output Total 2400 ml Balance -2000 ml 720 ml Results Result Diagram: 12/01/16 0525 12/01/16 0525 Results 24 hrs Laboratory Tests Test 12/01/16 05:25 12/01/16 07:56 12/01/16 11:45 12/01/16 17:34 Anion Gap 18 H Basophils # 0.1 Basophils % 1.1 Blood Urea Nitrogen 54 H Calcium Level 9.1 Carbon Dioxide Level 29 Chloride Level 94 L Creatinine 4.04 H Eosinophils # 0.6 H Eosinophils % 12.3 H Glucose Level 72 Hematocrit 36.6 L Hemoglobin 12.1 Lymphocytes # 1.3 Lymphocytes % 25.7 Mean Corpuscular Hemoglobin 33.5 H Mean Corpuscular Hemoglobin Concent 33.1 Mean Corpuscular Volume 101.4 H Mean Platelet Volume 10.5 H Monocytes # 0.6 Monocytes % 11.3 H Neutrophils # 2.6 Neutrophils % 49.4 Nucleated Red Blood Cells # 0.0 Nucleated Red Blood Cells % 0.0 Platelet Count 119 L Potassium Level 4.4 Red Blood Count 3.61 L Red Cell Distribution Width 13.8 Sodium Level 137 White Blood Count 5.2 Bedside Glucose 76 113 156 Test 12/01/16 20:40 Bedside Glucose 145 Medications Medications Current Medications Carbidopa/Levodopa (Sinemet (25/ 250)) 0.5 tab BID PO Last administered on 20:37; Admin Dose 0.5 TAB; Start 11/26/16 at 01:33 Clonazepam (Klonopin) 2 mg QHS PO Last administered on 12/01/16 20:36; Admin Dose 2 MG; Start 11/26/16 at 01:33 Pramipexole (Mirapex) 0.25 mg HS PO Last administered on 12/01/16 20:37; Admin Dose 0.25 MG; Start 11/26/16 at 21:00 Quetiapine Fumarate (Seroquel) 100 mg BID PO Last administered on 12/01/16 20: 37; Admin Dose 100 MG; Start 11/26/16 at 01:33 Famotidine (Pepcid) 20 mg DAILY PO Last administered on 12/01/16 09:23; Admin Dose 20 MG; Start 11/26/16 at 09:00 Heparin Sodium (Porcine) (Heparin (5000 Units/0.5 ml)) 5,000 unit BID SC Last administered on 12/01/16 20:39; Admin Dose 5,000 UNIT; Start 11/26/16 at 09:00 Ondansetron HCl (Zofran Inj) 4 mg Q4H PRN IV NAUSEA AND/OR VOMITING; Start 11/26 at 01:00 Acetaminophen (Tylenol Tab) 650 mg Q6H PRN PO PAIN AND OR ELEVATED TEMP Last administered on 12/01/16 16:11; Admin Dose 650 MG; Start 11/26/16 at 01:00 Hydralazine HCl (Apresoline) 10 mg BID PO Last administered on 12/01/16 20:36; Admin Dose 10 MG; Start 11/26/16 at 01:33 Hydralazine HCl (Apresoline) 10 mg Q4H PRN IV ELEVATED BLOOD PRESSURE Last administered on 11/27/16 16:48; Admin Dose 10 MG; Start 11/26/16 at 01:00 Diagnostic Test (Pha) (Accucheck) 1 ea 02 XX Last administered on 11/28/16 02: 25; Admin Dose 1 EA; Start 11/26/16 at 02:00 Miscellaneous Information 1 ea NOTE XX ; Start 11/26/16 at 01:30 Glucose (Glutose) 15 gm Q15M PRN PO DECREASED GLUCOSE; Start 11/26/16 at 01:30 Glucose (Glutose) 22.5 gm Q15M PRN PO DECREASED GLUCOSE; Start 11/26/16 at 01:30 Dextrose (D50w Syringe) 25 ml Q15M PRN IV DECREASED GLUCOSE; Start 11/26/16 at 01:30 Dextrose (D50w Syringe) 50 ml Q15M PRN IV DECREASED GLUCOSE; Start 11/26/16 at 01:30 Glucagon (Glucagen) 1 mg Q15M PRN IM DECREASED GLUCOSE; Start 11/26/16 at 01:30 Glucose (Glutose) 15 gm Q15M PRN BUCCAL DECREASED GLUCOSE Last administered on 11/27/16 16:58; Admin Dose 15 GM; Start 11/26/16 at 01:30 Acetaminophen/ Hydrocodone Bitart ([place] (5/325)) 1 tab Q4H PRN PO PAIN LEVEL 6 -10; Start 11/28/16 at 02:30 Amlodipine Besylate (Norvasc) 5 mg BID PO Last administered on 12/01/16 20:37; Admin Dose 5 MG; Start 11/30/16 at 09:00 Polyethylene Glycol (Miralax) 17 gm DAILY PRN PO CONSTIPATION Last administered on 12/01/16 13:15; Admin Dose 17 GM; Start 12/01/16 at 12:30 Docusate Sodium (Colace) 100 mg BID PRN PO CONSTIPATION Last administered on 20:36; Admin Dose 100 MG; Start 12/01/16 at 12:30 SPENCER HOOPER MD Dec 01, 2016 22:03
[2016-12-02] VITALS (10 sets, daily range): BP systolic 110–150; BP diastolic 50–67; PULSE 56–80; RESP 20
[2016-12-02] MEDS ORDERED: LORAZEPAM 0.5 MG TAB PO PRN (01:00)
[2016-12-02] MEDS: ACCUCHECK XX SCH (02:00)
--- NOTE | 2016-12-02 08:11 | CONS ---
Date/Time of Note Date/Time of Note DATE: 12/02/16 TIME: 08:10 Assessment/Plan Assessment/Plan Additional Assessment/Plan 1. CKD, to be dialyzed today. 2. HBP, control is better. 3. Sugar control is acceptable. 4. OK to dc today Consultation Date/Type/Reason Admit Date/Time Nov 25, 2016 at 22:35 Type of Consultation: Nephrology Detailed Summary Respiratory: No cough, No shortness of breath Cardiovascular: No chest pain Gastrointestinal: No pain Genitourinary: no complaints Exam/Review of Systems Vital Signs Vitals Vital Signs Date Time Temp Pulse Resp B/P Pulse Ox O2 Delivery O2 Flow Rate FiO2 12/02/16 07:35 97.6 60 20 140/60 96 12/01/16 00:18 Room Air Intake and Output 12/01/16 12/01/16 12/02/16 15:00 23:00 07:00 Intake Total 760 ml 720 ml Output Total 200 ml 250 ml Balance 560 ml 470 ml Exam Neck: No jvd Respiratory: clear to auscultation Cardiovascular: regular rate and rhythm Gastrointestinal: soft Extremities: No edema (and no calf tend) Results Result Diagram: 12/01/16 0525 12/01/16 0525 Results 24 hrs Laboratory Tests Test 12/01/16 11:45 12/01/16 17:34 12/01/16 20:40 12/02/16 07:46 Bedside Glucose 113 156 145 81 Medications Medications Current Medications Carbidopa/Levodopa (Sinemet (25/ 250)) 0.5 tab BID PO Last administered on 20:37; Admin Dose 0.5 TAB; Start 11/26/16 at 01:33 Clonazepam (Klonopin) 2 mg QHS PO Last administered on 12/01/16 20:36; Admin Dose 2 MG; Start 11/26/16 at 01:33 Pramipexole (Mirapex) 0.25 mg HS PO Last administered on 12/01/16 20:37; Admin Dose 0.25 MG; Start 11/26/16 at 21:00 Quetiapine Fumarate (Seroquel) 100 mg BID PO Last administered on 12/01/16 20: 37; Admin Dose 100 MG; Start 11/26/16 at 01:33 Famotidine (Pepcid) 20 mg DAILY PO Last administered on 12/01/16 09:23; Admin Dose 20 MG; Start 11/26/16 at 09:00 Heparin Sodium (Porcine) (Heparin (5000 Units/0.5 ml)) 5,000 unit BID SC Last administered on 12/01/16 20:39; Admin Dose 5,000 UNIT; Start 11/26/16 at 09:00 Ondansetron HCl (Zofran Inj) 4 mg Q4H PRN IV NAUSEA AND/OR VOMITING; Start 11/26 at 01:00 Acetaminophen (Tylenol Tab) 650 mg Q6H PRN PO PAIN AND OR ELEVATED TEMP Last administered on 12/01/16 16:11; Admin Dose 650 MG; Start 11/26/16 at 01:00 Hydralazine HCl (Apresoline) 10 mg BID PO Last administered on 12/01/16 20:36; Admin Dose 10 MG; Start 11/26/16 at 01:33 Hydralazine HCl (Apresoline) 10 mg Q4H PRN IV ELEVATED BLOOD PRESSURE Last administered on 11/27/16 16:48; Admin Dose 10 MG; Start 11/26/16 at 01:00 Diagnostic Test (Pha) (Accucheck) 1 ea 02 XX Last administered on 11/28/16 02: 25; Admin Dose 1 EA; Start 11/26/16 at 02:00 Miscellaneous Information 1 ea NOTE XX ; Start 11/26/16 at 01:30 Glucose (Glutose) 15 gm Q15M PRN PO DECREASED GLUCOSE; Start 11/26/16 at 01:30 Glucose (Glutose) 22.5 gm Q15M PRN PO DECREASED GLUCOSE; Start 11/26/16 at 01:30 Dextrose (D50w Syringe) 25 ml Q15M PRN IV DECREASED GLUCOSE; Start 11/26/16 at 01:30 Dextrose (D50w Syringe) 50 ml Q15M PRN IV DECREASED GLUCOSE; Start 11/26/16 at 01:30 Glucagon (Glucagen) 1 mg Q15M PRN IM DECREASED GLUCOSE; Start 11/26/16 at 01:30 Glucose (Glutose) 15 gm Q15M PRN BUCCAL DECREASED GLUCOSE Last administered on 11/27/16 16:58; Admin Dose 15 GM; Start 11/26/16 at 01:30 Acetaminophen/ Hydrocodone Bitart ([place] (5/325)) 1 tab Q4H PRN PO PAIN LEVEL 6 -10; Start 11/28/16 at 02:30 Amlodipine Besylate (Norvasc) 5 mg BID PO Last administered on 12/01/16 20:37; Admin Dose 5 MG; Start 11/30/16 at 09:00 Polyethylene Glycol (Miralax) 17 gm DAILY PRN PO CONSTIPATION Last administered on 12/01/16 13:15; Admin Dose 17 GM; Start 12/01/16 at 12:30 Docusate Sodium (Colace) 100 mg BID PRN PO CONSTIPATION Last administered on 20:36; Admin Dose 100 MG; Start 12/01/16 at 12:30 Lorazepam (Ativan) 0.25 mg PRN PRN PO INSOMNIA Last administered on 12/02/16 01:54; Admin Dose 0.25 MG; Start 12/02/16 at 01:00 KRISSY CUELLO MD Dec 02, 2016 08:11
[2016-12-02] MEDS: INSULIN ASPART [NOVOLOG] 3 ML PEN SC SCH ×4 (08:15→20:47)
[2016-12-02] MEDS: AMLODIPINE 5 MG TAB PO SCH ×2 (08:36→20:44)
[2016-12-02] MEDS: FAMOTIDINE 20 MG TAB PO SCH (08:38)
[2016-12-02] MEDS: SEVELAMER 800 MG TAB PO SCH ×3 (08:38→17:27)
[2016-12-02] MEDS: CARBIDOPA/LEVODOPA (25/250) TAB PO SCH ×2 (08:38→20:43)
[2016-12-02] MEDS: QUETIAPINE 100 MG TAB PO SCH ×2 (08:38→20:44)
[2016-12-02] MEDS: HEPARIN 5,000 UNIT/0.5 ML SYG SC SCH ×2 (08:42→20:47)
--- NOTE | 2016-12-02 11:00 | PN ---
Date/Time of Note Date/Time of Note DATE: 12/02/16 TIME: 10:58 Assessment/Plan VTE Prophylaxis VTE Prophylaxis Intervention: heparin Lines/Catheters IV Catheter Type (from Nrs): Saline Lock Urinary Cath still in place: No Assessment/Plan Assessment/Plan 1. ESRD on HD 2. Hyperkalemia 2/2 ESRD-resolved 3. Parkinson's disease 4. Diabetes mellitus- lantus has been discontinued due to hypoglycemia 5. Chronic obstructive pulmonary disease-stable PPx- Heparin low dose amlodipine added for better BP Control need outpatient HD placemen HD today Subjective 24 Hr Interval Summary Free Text/Dictation plan for HD today, awaiting Outpatient H D placement Exam/Review of Systems Vital Signs Vitals Vital Signs Date Time Temp Pulse Resp B/P Pulse Ox O2 Delivery O2 Flow Rate FiO2 12/02/16 07:35 97.6 60 20 140/60 96 12/01/16 00:18 Room Air Intake and Output 12/01/16 12/01/16 12/02/16 15:00 23:00 07:00 Intake Total 760 ml 720 ml Output Total 200 ml 250 ml Balance 560 ml 470 ml Exam Constitutional: alert Respiratory: clear to auscultation Cardiovascular: regular rate and rhythm Gastrointestinal: soft, No distended Musculoskeletal: nl extremities to inspection Results Result Diagram: 12/01/16 0525 12/01/16 0525 Results 24 hrs Laboratory Tests Test 12/01/16 11:45 12/01/16 17:34 12/01/16 20:40 12/02/16 07:46 Bedside Glucose 113 156 145 81 Medications Medications Current Medications Carbidopa/Levodopa (Sinemet (25/ 250)) 0.5 tab BID PO Last administered on 12/02 08:38; Admin Dose 0.5 TAB; Start 11/26/16 at 01:33 Clonazepam (Klonopin) 2 mg QHS PO Last administered on 12/01/16 20:36; Admin Dose 2 MG; Start 11/26/16 at 01:33 Pramipexole (Mirapex) 0.25 mg HS PO Last administered on 12/01/16 20:37; Admin Dose 0.25 MG; Start 11/26/16 at 21:00 Quetiapine Fumarate (Seroquel) 100 mg BID PO Last administered on 12/02/16 08: 38; Admin Dose 100 MG; Start 11/26/16 at 01:33 Famotidine (Pepcid) 20 mg DAILY PO Last administered on 12/02/16 08:38; Admin Dose 20 MG; Start 11/26/16 at 09:00 Heparin Sodium (Porcine) (Heparin (5000 Units/0.5 ml)) 5,000 unit BID SC Last administered on 12/02/16 08:42; Admin Dose 5,000 UNIT; Start 11/26/16 at 09:00 Ondansetron HCl (Zofran Inj) 4 mg Q4H PRN IV NAUSEA AND/OR VOMITING; Start 11/26 at 01:00 Acetaminophen (Tylenol Tab) 650 mg Q6H PRN PO PAIN AND OR ELEVATED TEMP Last administered on 12/01/16 16:11; Admin Dose 650 MG; Start 11/26/16 at 01:00 Hydralazine HCl (Apresoline) 10 mg BID PO Last administered on 12/01/16 20:36; Admin Dose 10 MG; Start 11/26/16 at 01:33 Hydralazine HCl (Apresoline) 10 mg Q4H PRN IV ELEVATED BLOOD PRESSURE Last administered on 11/27/16 16:48; Admin Dose 10 MG; Start 11/26/16 at 01:00 Diagnostic Test (Pha) (Accucheck) 1 ea 02 XX Last administered on 11/28/16 02: 25; Admin Dose 1 EA; Start 11/26/16 at 02:00 Miscellaneous Information 1 ea NOTE XX ; Start 11/26/16 at 01:30 Glucose (Glutose) 15 gm Q15M PRN PO DECREASED GLUCOSE; Start 11/26/16 at 01:30 Glucose (Glutose) 22.5 gm Q15M PRN PO DECREASED GLUCOSE; Start 11/26/16 at 01:30 Dextrose (D50w Syringe) 25 ml Q15M PRN IV DECREASED GLUCOSE; Start 11/26/16 at 01:30 Dextrose (D50w Syringe) 50 ml Q15M PRN IV DECREASED GLUCOSE; Start 11/26/16 at 01:30 Glucagon (Glucagen) 1 mg Q15M PRN IM DECREASED GLUCOSE; Start 11/26/16 at 01:30 Glucose (Glutose) 15 gm Q15M PRN BUCCAL DECREASED GLUCOSE Last administered on 11/27/16 16:58; Admin Dose 15 GM; Start 11/26/16 at 01:30 Acetaminophen/ Hydrocodone Bitart ([place] (5/325)) 1 tab Q4H PRN PO PAIN LEVEL 6 -10; Start 11/28/16 at 02:30 Amlodipine Besylate (Norvasc) 5 mg BID PO Last administered on 12/01/16 20:37; Admin Dose 5 MG; Start 11/30/16 at 09:00 Polyethylene Glycol (Miralax) 17 gm DAILY PRN PO CONSTIPATION Last administered on 12/01/16 13:15; Admin Dose 17 GM; Start 12/01/16 at 12:30 Docusate Sodium (Colace) 100 mg BID PRN PO CONSTIPATION Last administered on 20:36; Admin Dose 100 MG; Start 12/01/16 at 12:30 Lorazepam (Ativan) 0.25 mg PRN PRN PO INSOMNIA Last administered on 12/02/16 01:54; Admin Dose 0.25 MG; Start 12/02/16 at 01:00 SPENCER HOOPER MD Dec 02, 2016 11:00
[2016-12-02] MEDS: DOCUSATE SODIUM 100 MG CAP PO PRN ×2 (13:36→20:44)
[2016-12-02] MEDS: POLYETHYLENE GLYCOL 17 GM PACKET PO PRN (13:36)
[2016-12-02] MEDS: clonAZEPAM 0.5 MG TAB PO SCH (20:43)
[2016-12-02] MEDS: PRAMIPEXOLE 0.25 MG TAB PO SCH (20:44)
[2016-12-03] MEDS: ACCUCHECK XX SCH (02:00)
[2016-12-03 07:46] VITALS: BP 122/59; RESP 20
[2016-12-03] MEDS: SEVELAMER 800 MG TAB PO SCH ×3 (07:47→17:19)
[2016-12-03] MEDS: INSULIN ASPART [NOVOLOG] 3 ML PEN SC SCH ×4 (07:48→20:45)
[2016-12-03] MEDS: CARBIDOPA/LEVODOPA (25/250) TAB PO SCH ×2 (08:43→20:39)
[2016-12-03] MEDS: AMLODIPINE 5 MG TAB PO SCH ×2 (08:43→20:39)
[2016-12-03] MEDS: QUETIAPINE 100 MG TAB PO SCH ×2 (08:43→20:39)
[2016-12-03] MEDS: FAMOTIDINE 20 MG TAB PO SCH (08:43)
[2016-12-03] MEDS: HEPARIN 5,000 UNIT/0.5 ML SYG SC SCH ×2 (09:10→20:43)
--- NOTE | 2016-12-03 11:14 | PN ---
Date/Time of Note Date/Time of Note DATE: 12/03/16 TIME: 11:10 Assessment/Plan VTE Prophylaxis VTE Prophylaxis Intervention: heparin Lines/Catheters IV Catheter Type (from Nrs): Saline Lock Urinary Cath still in place: No Assessment/Plan Assessment/Plan 1. ESRD on HD 2. Hyperkalemia 2/2 ESRD-resolved 3. Parkinson's disease 4. Diabetes mellitus- lantus has been discontinued due to hypoglycemia 5. Chronic obstructive pulmonary disease-stable PPx- Heparin amlodipine for BP control pt is set up for HD at [facility] [place] for scheduled HD on TTS HD today vs tomorrow as per nephrology Subjective 24 Hr Interval Summary Free Text/Dictation s/p HD yesterday 2 L removed, still c/o pain and SOB Exam/Review of Systems Vital Signs Vitals Vital Signs Date Time Temp Pulse Resp B/P Pulse Ox O2 Delivery O2 Flow Rate FiO2 12/03/16 07:46 97.6 20 122/59 97 12/02/16 20:00 62 12/01/16 00:18 Room Air Intake and Output 12/02/16 12/02/16 12/03/16 15:00 23:00 07:00 Intake Total 500 ml 102 ml 460 ml Output Total 2500 ml 25 ml Balance -2000 ml 102 ml 435 ml Exam Constitutional: alert Respiratory: clear to auscultation Cardiovascular: regular rate and rhythm Gastrointestinal: soft, No distended Musculoskeletal: nl extremities to inspection Results Result Diagram: 12/01/16 0525 12/01/16 0525 Results 24 hrs Laboratory Tests Test 12/02/16 11:46 12/02/16 17:27 12/02/16 20:42 12/03/16 02:00 Bedside Glucose 120 124 196 103 Test 12/03/16 07:47 Bedside Glucose 80 Medications Medications Current Medications Carbidopa/Levodopa (Sinemet (25/ 250)) 0.5 tab BID PO Last administered on 12/03 08:43; Admin Dose 0.5 TAB; Start 11/26/16 at 01:33 Clonazepam (Klonopin) 2 mg QHS PO Last administered on 12/02/16 20:43; Admin Dose 2 MG; Start 11/26/16 at 01:33 Pramipexole (Mirapex) 0.25 mg HS PO Last administered on 12/02/16 20:44; Admin Dose 0.25 MG; Start 11/26/16 at 21:00 Quetiapine Fumarate (Seroquel) 100 mg BID PO Last administered on 12/03/16 08: 43; Admin Dose 100 MG; Start 11/26/16 at 01:33 Famotidine (Pepcid) 20 mg DAILY PO Last administered on 12/03/16 08:43; Admin Dose 20 MG; Start 11/26/16 at 09:00 Heparin Sodium (Porcine) (Heparin (5000 Units/0.5 ml)) 5,000 unit BID SC Last administered on 12/03/16 09:10; Admin Dose 5,000 UNIT; Start 11/26/16 at 09:00 Ondansetron HCl (Zofran Inj) 4 mg Q4H PRN IV NAUSEA AND/OR VOMITING; Start 11/26 at 01:00 Acetaminophen (Tylenol Tab) 650 mg Q6H PRN PO PAIN AND OR ELEVATED TEMP Last administered on 12/01/16 16:11; Admin Dose 650 MG; Start 11/26/16 at 01:00 Hydralazine HCl (Apresoline) 10 mg BID PO Last administered on 12/02/16 20:44 ; Admin Dose 10 MG; Start 11/26/16 at 01:33 Hydralazine HCl (Apresoline) 10 mg Q4H PRN IV ELEVATED BLOOD PRESSURE Last administered on 11/27/16 16:48; Admin Dose 10 MG; Start 11/26/16 at 01:00 Diagnostic Test (Pha) (Accucheck) 1 ea 02 XX Last administered on 12/03/16 02: 00; Admin Dose 1 EA; Start 11/26/16 at 02:00 Miscellaneous Information 1 ea NOTE XX ; Start 11/26/16 at 01:30 Glucose (Glutose) 15 gm Q15M PRN PO DECREASED GLUCOSE; Start 11/26/16 at 01:30 Glucose (Glutose) 22.5 gm Q15M PRN PO DECREASED GLUCOSE; Start 11/26/16 at 01:30 Dextrose (D50w Syringe) 25 ml Q15M PRN IV DECREASED GLUCOSE; Start 11/26/16 at 01:30 Dextrose (D50w Syringe) 50 ml Q15M PRN IV DECREASED GLUCOSE; Start 11/26/16 at 01:30 Glucagon (Glucagen) 1 mg Q15M PRN IM DECREASED GLUCOSE; Start 11/26/16 at 01:30 Glucose (Glutose) 15 gm Q15M PRN BUCCAL DECREASED GLUCOSE Last administered on 11/27/16 16:58; Admin Dose 15 GM; Start 11/26/16 at 01:30 Acetaminophen/ Hydrocodone Bitart ([place] (5/325)) 1 tab Q4H PRN PO PAIN LEVEL 6 -10; Start 11/28/16 at 02:30 Amlodipine Besylate (Norvasc) 5 mg BID PO Last administered on 12/02/16 20:44 ; Admin Dose 5 MG; Start 11/30/16 at 09:00 Polyethylene Glycol (Miralax) 17 gm DAILY PRN PO CONSTIPATION Last administered on 12/02/16 13:36; Admin Dose 17 GM; Start 12/01/16 at 12:30 Docusate Sodium (Colace) 100 mg BID PRN PO CONSTIPATION Last administered on 20:44; Admin Dose 100 MG; Start 12/01/16 at 12:30 Lorazepam (Ativan) 0.25 mg PRN PRN PO INSOMNIA Last administered on 12/02/16 01:54; Admin Dose 0.25 MG; Start 12/02/16 at 01:00 SPENCER HOOPER MD Dec 03, 2016 11:14
[2016-12-03] MEDS: PRAMIPEXOLE 0.25 MG TAB PO SCH (20:39)
[2016-12-03] MEDS: clonAZEPAM 0.5 MG TAB PO SCH (20:39)
[2016-12-03 21:16] VITALS: BP 155/69; RESP 20
[2016-12-04] VITALS (9 sets, daily range): BP systolic 118–157; BP diastolic 51–65; PULSE 62–66; RESP 18
[2016-12-04] MEDS: ACCUCHECK XX SCH (01:12)
[2016-12-04] MEDS: SEVELAMER 800 MG TAB PO SCH ×3 (08:09→17:37)
[2016-12-04] MEDS: FAMOTIDINE 20 MG TAB PO SCH (08:10)
[2016-12-04] MEDS: QUETIAPINE 100 MG TAB PO SCH ×2 (08:10→21:10)
[2016-12-04] MEDS: CARBIDOPA/LEVODOPA (25/250) TAB PO SCH ×2 (08:10→21:10)
[2016-12-04] MEDS: INSULIN ASPART [NOVOLOG] 3 ML PEN SC SCH ×4 (08:15→21:00)
[2016-12-04] MEDS: HEPARIN 5,000 UNIT/0.5 ML SYG SC SCH ×2 (09:16→21:22)
--- NOTE | 2016-12-04 10:33 | PDOCDIS ---
Discharge Instructions CONDITION Patient Condition: Good HOME CARE INSTRUCTIONS: Special Diet: Renal ACTIVITY: Activity Restrictions: Slowly Increase Activity Rest between Activity Avoid heavy lifting Avoid Heavy Housework FOLLOW UP/APPOINTMENTS Appointments Follow up with human services manager in 2 week. Follow up at [facility] Dialysis unit for scheduled HD on , , monday REFERRALS Agency Name and Phone Number: [facility] SPENCER HOOPER MD Dec 04, 2016 10:32
[2016-12-04] MEDS ORDERED: AMLO-145 PO (10:34)
[2016-12-04] MEDS: AMLODIPINE 5 MG TAB PO SCH ×2 (12:05→21:09)
[2016-12-04] MEDS: POLYETHYLENE GLYCOL 17 GM PACKET PO PRN (12:06)
[2016-12-04] MEDS: DOCUSATE SODIUM 100 MG CAP PO PRN (12:06)
[2016-12-04] MEDS: clonAZEPAM 0.5 MG TAB PO SCH (21:10)
[2016-12-04] MEDS: PRAMIPEXOLE 0.25 MG TAB PO SCH (21:10)
--- NOTE | 2016-12-04 21:57 | PN ---
Date/Time of Note Date/Time of Note DATE: 12/04/16 TIME: 21:56 Assessment/Plan VTE Prophylaxis VTE Prophylaxis Intervention: heparin Lines/Catheters IV Catheter Type (from Nrs): Saline Lock Urinary Cath still in place: No Assessment/Plan Assessment/Plan 1. ESRD on HD 2. Hyperkalemia 2/2 ESRD-resolved 3. Parkinson's disease 4. Diabetes mellitus- lantus has been discontinued due to hypoglycemia 5. Chronic obstructive pulmonary disease-stable PPx- Heparin amlodipine for BP control pt is set up for HD at [facility] dialysis for scheduled HD on TTS HD today d/c plan on Monday Subjective 24 Hr Interval Summary Free Text/Dictation plan for HD today Exam/Review of Systems Vital Signs Vitals Vital Signs Date Time Temp Pulse Resp B/P Pulse Ox O2 Delivery O2 Flow Rate FiO2 12/04/16 20:13 98.3 65 18 157/60 96 12/01/16 00:18 Room Air Intake and Output 12/03/16 12/03/16 12/04/16 15:00 23:00 07:00 Intake Total 500 ml Output Total 2500 ml Balance -2000 ml Exam Constitutional: alert Respiratory: clear to auscultation Cardiovascular: regular rate and rhythm Gastrointestinal: soft, No distended Musculoskeletal: nl extremities to inspection Results Result Diagram: 12/01/16 0525 12/01/16 0525 Results 24 hrs Laboratory Tests Test 12/04/16 08:02 12/04/16 12:03 12/04/16 17:34 12/04/16 21:11 Bedside Glucose 129 118 132 143 Medications Medications Current Medications Carbidopa/Levodopa (Sinemet (25/ 250)) 0.5 tab BID PO Last administered on 12/04 21:10; Admin Dose 0.5 TAB; Start 11/26/16 at 01:33 Clonazepam (Klonopin) 2 mg QHS PO Last administered on 12/04/16 21:10; Admin Dose 2 MG; Start 11/26/16 at 01:33 Pramipexole (Mirapex) 0.25 mg HS PO Last administered on 12/04/16 21:10; Admin Dose 0.25 MG; Start 11/26/16 at 21:00 Quetiapine Fumarate (Seroquel) 100 mg BID PO Last administered on 12/04/16 21: 10; Admin Dose 100 MG; Start 11/26/16 at 01:33 Famotidine (Pepcid) 20 mg DAILY PO Last administered on 12/04/16 08:10; Admin Dose 20 MG; Start 11/26/16 at 09:00 Heparin Sodium (Porcine) (Heparin (5000 Units/0.5 ml)) 5,000 unit BID SC Last administered on 12/04/16 21:22; Admin Dose 5,000 UNIT; Start 11/26/16 at 09:00 Ondansetron HCl (Zofran Inj) 4 mg Q4H PRN IV NAUSEA AND/OR VOMITING; Start 11/26 at 01:00 Acetaminophen (Tylenol Tab) 650 mg Q6H PRN PO PAIN AND OR ELEVATED TEMP Last administered on 12/01/16 16:11; Admin Dose 650 MG; Start 11/26/16 at 01:00 Hydralazine HCl (Apresoline) 10 mg BID PO Last administered on 12/04/16 21:10 ; Admin Dose 10 MG; Start 11/26/16 at 01:33 Hydralazine HCl (Apresoline) 10 mg Q4H PRN IV ELEVATED BLOOD PRESSURE Last administered on 11/27/16 16:48; Admin Dose 10 MG; Start 11/26/16 at 01:00 Diagnostic Test (Pha) (Accucheck) 1 ea 02 XX Last administered on 12/03/16 02: 00; Admin Dose 1 EA; Start 11/26/16 at 02:00 Miscellaneous Information 1 ea NOTE XX ; Start 11/26/16 at 01:30 Glucose (Glutose) 15 gm Q15M PRN PO DECREASED GLUCOSE; Start 11/26/16 at 01:30 Glucose (Glutose) 22.5 gm Q15M PRN PO DECREASED GLUCOSE; Start 11/26/16 at 01:30 Dextrose (D50w Syringe) 25 ml Q15M PRN IV DECREASED GLUCOSE; Start 11/26/16 at 01:30 Dextrose (D50w Syringe) 50 ml Q15M PRN IV DECREASED GLUCOSE; Start 11/26/16 at 01:30 Glucagon (Glucagen) 1 mg Q15M PRN IM DECREASED GLUCOSE; Start 11/26/16 at 01:30 Glucose (Glutose) 15 gm Q15M PRN BUCCAL DECREASED GLUCOSE Last administered on 11/27/16 16:58; Admin Dose 15 GM; Start 11/26/16 at 01:30 Acetaminophen/ Hydrocodone Bitart ([place] (5/325)) 1 tab Q4H PRN PO PAIN LEVEL 6 -10; Start 11/28/16 at 02:30 Amlodipine Besylate (Norvasc) 5 mg BID PO Last administered on 12/04/16 21:09 ; Admin Dose 5 MG; Start 11/30/16 at 09:00 Polyethylene Glycol (Miralax) 17 gm DAILY PRN PO CONSTIPATION Last administered on 12/04/16 12:06; Admin Dose 17 GM; Start 12/01/16 at 12:30 Docusate Sodium (Colace) 100 mg BID PRN PO CONSTIPATION Last administered on 12:06; Admin Dose 100 MG; Start 12/01/16 at 12:30 Lorazepam (Ativan) 0.25 mg PRN PRN PO INSOMNIA Last administered on 12/02/16 01:54; Admin Dose 0.25 MG; Start 12/02/16 at 01:00 SPENCER HOOPER MD Dec 04, 2016 21:57
[2016-12-05] MEDS: ACCUCHECK XX SCH (01:00)
[2016-12-05 07:46] VITALS: BP 134/59; RESP 18
[2016-12-05] MEDS: INSULIN ASPART [NOVOLOG] 3 ML PEN SC SCH ×2 (07:51→11:40)
[2016-12-05] MEDS: QUETIAPINE 100 MG TAB PO SCH (08:06)
[2016-12-05] MEDS: CARBIDOPA/LEVODOPA (25/250) TAB PO SCH (08:06)
[2016-12-05] MEDS: AMLODIPINE 5 MG TAB PO SCH (08:07)
[2016-12-05] MEDS: FAMOTIDINE 20 MG TAB PO SCH (08:07)
[2016-12-05] MEDS: SEVELAMER 800 MG TAB PO SCH ×2 (08:12→12:03)
[2016-12-05] MEDS: HEPARIN 5,000 UNIT/0.5 ML SYG SC SCH (08:20)
--- NOTE | 2016-12-05 09:47 | PN ---
Date/Time of Note Date/Time of Note DATE: 12/05/16 TIME: 09:46 Assessment/Plan VTE Prophylaxis VTE Prophylaxis Intervention: heparin Lines/Catheters IV Catheter Type (from Nrsg): Saline Lock Urinary Cath still in place: No Assessment/Plan Assessment/Plan 1. ESRD on HD 2. Hyperkalemia 2/2 ESRD-resolved 3. Parkinson's disease 4. Diabetes mellitus- lantus has been discontinued due to hypoglycemia 5. Chronic obstructive pulmonary disease-stable PPx- Heparin amlodipine for BP control pt is set up for HD at [facility] dialysis for scheduled HD on TTS HD today d/c plan on Monday Subjective 24 Hr Interval Summary Free Text/Dictation doing ok,BP stable,afebrile Exam/Review of Systems Vital Signs Vitals Vital Signs Date Time Temp Pulse Resp B/P Pulse Ox O2 Delivery O2 Flow Rate FiO2 12/05/16 07:46 97.3 63 18 134/59 93 Intake and Output 12/04/16 12/04/16 12/05/16 15:00 23:00 07:00 Intake Total 760 ml 600 ml Balance 760 ml 600 ml Exam Constitutional: alert Respiratory: clear to auscultation Cardiovascular: regular rate and rhythm Gastrointestinal: soft, No distended Musculoskeletal: nl extremities to inspection Results Result Diagram: 12/01/16 0525 12/01/16 0525 Results 24 hrs Laboratory Tests Test 12/04/16 12:03 12/04/16 17:34 12/04/16 21:11 12/05/16 07:50 Bedside Glucose 118 132 143 69 L Test 12/05/16 08:14 12/05/16 08:39 Bedside Glucose 100 100 Medications Medications Current Medications Carbidopa/Levodopa (Sinemet (25/ 250)) 0.5 tab BID PO Last administered on 12/05 08:06; Admin Dose 0.5 TAB; Start 11/26/16 at 01:33 Clonazepam (Klonopin) 2 mg QHS PO Last administered on 12/04/16 21:10; Admin Dose 2 MG; Start 11/26/16 at 01:33 Pramipexole (Mirapex) 0.25 mg HS PO Last administered on 12/04/16 21:10; Admin Dose 0.25 MG; Start 11/26/16 at 21:00 Quetiapine Fumarate (Seroquel) 100 mg BID PO Last administered on 12/05/16 08: 06; Admin Dose 100 MG; Start 11/26/16 at 01:33 Famotidine (Pepcid) 20 mg DAILY PO Last administered on 12/05/16 08:07; Admin Dose 20 MG; Start 11/26/16 at 09:00 Heparin Sodium (Porcine) (Heparin (5000 Units/0.5 ml)) 5,000 unit BID SC Last administered on 12/05/16 08:20; Admin Dose 5,000 UNIT; Start 11/26/16 at 09:00 Ondansetron HCl (Zofran Inj) 4 mg Q4H PRN IV NAUSEA AND/OR VOMITING; Start 11/26 at 01:00 Acetaminophen (Tylenol Tab) 650 mg Q6H PRN PO PAIN AND OR ELEVATED TEMP Last administered on 12/01/16 16:11; Admin Dose 650 MG; Start 11/26/16 at 01:00 Hydralazine HCl (Apresoline) 10 mg BID PO Last administered on 12/05/16 08:06 ; Admin Dose 10 MG; Start 11/26/16 at 01:33 Hydralazine HCl (Apresoline) 10 mg Q4H PRN IV ELEVATED BLOOD PRESSURE Last administered on 11/27/16 16:48; Admin Dose 10 MG; Start 11/26/16 at 01:00 Diagnostic Test (Pha) (Accucheck) 1 ea 02 XX Last administered on 12/03/16 02: 00; Admin Dose 1 EA; Start 11/26/16 at 02:00 Miscellaneous Information 1 ea NOTE XX ; Start 11/26/16 at 01:30 Glucose (Glutose) 15 gm Q15M PRN PO DECREASED GLUCOSE; Start 11/26/16 at 01:30 Glucose (Glutose) 22.5 gm Q15M PRN PO DECREASED GLUCOSE; Start 11/26/16 at 01:30 Dextrose (D50w Syringe) 25 ml Q15M PRN IV DECREASED GLUCOSE; Start 11/26/16 at 01:30 Dextrose (D50w Syringe) 50 ml Q15M PRN IV DECREASED GLUCOSE; Start 11/26/16 at 01:30 Glucagon (Glucagen) 1 mg Q15M PRN IM DECREASED GLUCOSE; Start 11/26/16 at 01:30 Glucose (Glutose) 15 gm Q15M PRN BUCCAL DECREASED GLUCOSE Last administered on 11/27/16 16:58; Admin Dose 15 GM; Start 11/26/16 at 01:30 Acetaminophen/ Hydrocodone Bitart ([place] (5/325)) 1 tab Q4H PRN PO PAIN LEVEL 6 -10; Start 11/28/16 at 02:30 Amlodipine Besylate (Norvasc) 5 mg BID PO Last administered on 12/05/16 08:07 ; Admin Dose 5 MG; Start 11/30/16 at 09:00 Polyethylene Glycol (Miralax) 17 gm DAILY PRN PO CONSTIPATION Last administered on 12/04/16 12:06; Admin Dose 17 GM; Start 12/01/16 at 12:30 Docusate Sodium (Colace) 100 mg BID PRN PO CONSTIPATION Last administered on 12:06; Admin Dose 100 MG; Start 12/01/16 at 12:30 Lorazepam (Ativan) 0.25 mg PRN PRN PO INSOMNIA Last administered on 12/02/16 01:54; Admin Dose 0.25 MG; Start 12/02/16 at 01:00 SPENCER HOOPER MD Dec 05, 2016 09:47
[2016-12-05] MEDS: DOCUSATE SODIUM 100 MG CAP PO PRN (10:33)
[2016-12-05] MEDS: POLYETHYLENE GLYCOL 17 GM PACKET PO PRN (10:33)
--- NOTE | 2016-12-05 23:47 | DS ---
DATE OF ADMISSION: 11/25/2016 DATE OF DISCHARGE: 12/05/2016 FINAL DISCHARGE DIAGNOSES: 1. Acute hyperkalemia secondary to missed hemodialysis. 2. Acute fluid overload secondary to missed hemodialysis. 3. End-stage renal disease on hemodialysis, required outpatient dialysis placement due to the loss of her place. 4. Diabetes mellitus. 5. History of Parkinson's disease. 6. Chronic obstructive pulmonary disease. CONSULTATIONS DONE DURING THIS HOSPITALIZATION: Nephrology consult, Dr. Barclay. PROCEDURES PERFORMED DURING THIS HOSPITALIZATION: None. HOSPITAL COURSE: This is a 70-year-old female with a past medical history of hypertension, hyperlip idemia, end-stage renal disease on hemodialysis, Parkinson's disease, COPD. The patient was getting hemodialysis schedule here in the , but then she went to [place] for 3 to 4 months. The patient l ost her dialysis placement and she was able to get back to her original dialysis, but she was not ac cepted due to loss of her chair. She presented to the [facility] with a complaint of sh ortness of breath. She is noted to have acute hyperkalemia and acute fluid overload secondary to mi ssed hemodialysis. She received serial hemodialysis while being in the hospital. She was seen by Brinda Barclay as a nephrology consultation and she was set up for dialysis placement in the [facility] in the [place]. The patient is getting discharged with home health. DISPOSITION: To home with home health. DISCHARGE CONDITION: Stable and improved compared to admission. DISCHARGE ACTIVITIES: As tolerated, slowly resume to the normal baseline activity. DISCHARGE DIET: Renal diet. DISCHARGE MEDICATIONS: As per medical reconciliation. She is given prescription of Amlodipine 5 mg p.o. b.i.d. on discharge. DISCHARGE FOLLOWUP/INSTRUCTIONS: 1. The patient is to follow up with Dr. Spencer Hooper in outpatient clinic 1 to 2 weeks after disch arge. 2. The patient is to follow up at the [facility] dialysis unit for scheduled hemodialysis on Mon, , Monday. She has been explained about her discharge plan and followup instructions. She understood and verba lized understanding. Dictated By: SPENCER HOOPER MD, KP/MAEGAN Conf#: [id number] DID#: [id number]
== END 2016-12-05 12:55 | disposition home health service (06) | DRG 640 ==
LOC: E/R 17:22 → TEL 22:35 → MS2 11-30 08:05
PROVIDERS: ADMIT Internal Medicine; ATTEND Internal Medicine
PROC: 5A1D60Z (ICD-10-PCS; principal; 2016-11-26)
DX: E87.5 Hyperkalemia (principal); I12.0 Hypertensive chronic kidney disease with stage 5 chronic kidney disease or end stage renal disease; N18.6 End stage renal disease; E87.2 Acidosis; G20 Parkinson's disease; D63.1 Anemia in chronic kidney disease; E11.9 Type 2 diabetes mellitus without complications; F32.9 Major depressive disorder, single episode, unspecified; J44.9 Chronic obstructive pulmonary disease, unspecified; E87.70 Fluid overload, unspecified; Z99.2 Dependence on renal dialysis; Z79.4 Long term (current) use of insulin
CPT/HCPCS: 36415; 71010; 80048; 80053; 82962; 83036; 83735; 84100; 85025; 85610; 85730; 86704; 86709; 86803; 87081; 87340; 90935; 93005; 96374; 96375; J0360; J1815